=== PATIENT | female | born 1955 | race African-American/Black ===

== ENCOUNTER 2018-07-14 17:41 | Inpatient (IN) | payer MEDICAID, MEDICARE ==
--- NOTE | 2018-07-14 18:27 | ER Document Report ---
ED Medical Screen (RME) - General Chief Complaint: Breathing Difficulty Stated Complaint: CONGESTION Time Seen by Provider: 07/14/18 18:17 TRAVEL OUTSIDE OF THE [place] IN LAST 30 DAYS: No - HPI Patient complains to provider of: Cough, congestion, nausea, vomiting Notes: 07/14/18 18:26 Patient noted to have extremely low blood pressure and was taken back to a room immediately did offer to Dr. Bermudez for further care and evaluation 07/14/18 18:26 RAPID MEDICAL EVALUATION DISCLOSURE I have seen this patient as part of a Rapid Medical Evaluation and, if applicable, placed any initially appropriate orders. The patient will be seen and fully evaluated, including a full history and physical exam, by a provider (in Main ED or Fast Track) when a room becomes available. - Related Data Allergies/Adverse Reactions: No Known Allergies Allergy (Unverified 07/14/18 17:45) Past Medical History Renal/ Medical History: Denies: Hx Peritoneal Dialysis Physical Exam - Vital signs Vitals: Temp Pulse Resp BP Pulse Ox 97.4 F 88 17 60/44 L 92 07/14/18 18:06 07/14/18 18:06 07/14/18 18:06 07/14/18 18:06 07/14/18 18:06 Course - Vital Signs Vital signs: Temp Pulse Resp BP Pulse Ox 97.4 F 90 17 77/53 L 92 07/14/18 18:06 07/14/18 18:21 07/14/18 18:06 07/14/18 18:21 07/14/18 18:06
[2018-07-14] MEDS ORDERED: RINGERS SOLUTION,LACTATED 1,000 ML IV ONE ×2 (18:31→20:01)
[2018-07-14] MEDS ORDERED: LEVOFLOXACIN 750 MG/D5W RTU 750 MG/150 ML RTUPB IV ONE (18:32)
--- NOTE | 2018-07-14 18:34 | ER Document Report ---
ED General - General Chief Complaint: Breathing Difficulty Stated Complaint: CONGESTION Time Seen by Provider: 07/14/18 18:17 Notes: Patient is a 62-year-old female with a past medical history of essential hypertension, hypercholesterolemia, presents with concerns of 2 days of cough with sputum production as well as feeling quite fatigued. The patient notes that she is also had associated nausea and vomiting and has had difficulty tolerating oral intake over that time. Symptoms started gradually, been worsening since onset. Nothing seems to improve or worsen her symptoms. States that she was seen for a cough approximately 10 days ago, started on levofloxacin but discontinued the medication due to side effects. She denies any known history of chronic kidney disease. Continues to urinate regularly. Continues to have normal bowel movements. She does note that she also feels short of breath particular when she coughs for prolonged periods of time. No chest pain or fever. Has not yet seen her primary care doctor regarding today's new concerns. TRAVEL OUTSIDE OF THE [place] IN LAST 30 DAYS: No - Related Data Allergies/Adverse Reactions: No Known Allergies Allergy (Unverified 07/14/18 17:45) Past Medical History - General Information source: Patient - Social History Smoking Status: Never Smoker Frequency of alcohol use: None Drug Abuse: None Lives with: Family Family History: Reviewed & Not Pertinent Patient has suicidal ideation: No Patient has homicidal ideation: No Renal/ Medical History: Denies: Hx Peritoneal Dialysis Review of Systems - Review of Systems Notes: Constitutional: Negative for fever. Positive for generalized fatigue HENT: Negative for sore throat. Eyes: Negative for visual changes. Cardiovascular: Negative for chest pain. Respiratory: Positive for cough and shortness of breath Gastrointestinal: Negative for abdominal pain, positive for vomiting Genitourinary: Negative for dysuria. Musculoskeletal: Negative for back pain. Skin: Negative for rash. Neurological: Negative for headaches, weakness or numbness. 10 point ROS negative except as marked above and in HPI. Physical Exam - Vital signs Vitals: Temp Pulse Resp BP Pulse Ox 97.4 F 88 17 60/44 L 92 07/14/18 18:06 07/14/18 18:06 07/14/18 18:06 07/14/18 18:06 07/14/18 18:06 Interpretation: Hypotensive Notes: PHYSICAL EXAMINATION: GENERAL: Somewhat ill in appearance but in no acute distress HEAD: Atraumatic, normocephalic. EYES: Pupils equal round and reactive to light, extraocular movements intact, sclera anicteric, conjunctiva are normal. ENT: nares patent, oropharynx clear without exudates. Dry mucous membranes. NECK: Normal range of motion, supple without lymphadenopathy LUNGS: Rhonchorous breath sounds at the bases bilaterally. No respiratory distress. HEART: Regular rate and rhythm without murmurs ABDOMEN: Soft, nontender, normoactive bowel sounds. No guarding, no rebound. No masses appreciated. EXTREMITIES: Normal range of motion, no pitting or edema. No cyanosis. NEUROLOGICAL: No focal neurological deficits. Moves all extremities spon taneously and on command. PSYCH: Normal mood, normal affect. SKIN: Mildly cool skin. No acute lesions. Course - Re-evaluation Re-evalutation: 07/14/18 18:33 Documentation is delayed as I been at this patient's bedside since arrival to the department. In summary this patient does arrive profoundly hypotensive 60/33 on initial blood pressure reading. The patient was immediately brought to a trauma bay. On assessment the patient actually does not appear as poor as her blood pressure. She is slightly lethargic although does answer all questions appropriately. She complains only of vomiting as well as cough with sputum pr oduction. She also notes that she feels mildly short of breath. Symptoms have been ongoing for 3 days in total. Lung exam reveals scattered rhonchi at the bases. The patient has dry oral mucosa. Capillary refill moderately delayed. We will immediately establish to points of IV access. A 1 L lactated Ringer bolus has been initiated. Vitals are otherwise within acceptable limits with the exception of mild hypoxemia with an oxygen saturation of 92%. Patient does not have any history of obstructive or restrictive lung disease and I suspect that this is likely secondary to a respiratory infectious etiology given her hypotension, cough and sputum production and hypoxemia. IV levofloxacin has been initiated. Will obtain broad laboratories including lactate, cultures, venous blood gas. Chest x-ray is pending. Will continue to reassess this patient at regular intervals for monitoring of her blood pressure. 07/14/18 20:21 Patient's blood pressure is moderately improved. Second liter of IV fluid has been initiated. Radial capacity consistent with a likely pneumonia particular given clinical history. Awaiting laboratories. Will work on obtaining a second point of access. Will continue to reassess at regular intervals. I have reassessed patient on 2 occasions as well as augmentation. Patient and her son at the bedside been updated on care plan. 07/14/18 21:30 Patient's laboratories do reveal acute renal failure. I have discussed with Dr. Fitch who has accepted the patient. I have also discussed with Dr. Vinson who confirmed that this patient is appropriate to remain at this hospital. He has requested a renal ultrasound. Patient's blood pressure has remained map currently 75. - Vital Signs Vital signs: Temp Pulse Resp BP Pulse Ox 98.0 F 90 18 92/79 L 92 07/15/18 01:13 07/14/18 18:21 07/15/18 01:13 07/15/18 01:13 07/15/18 01:13 - Laboratory Result Diagrams: 07/14/18 20:00 07/14/18 20:00 Laboratory results interpreted by me: 07/14/18 07/14/18 07/14/18 20:00 20:00 20:00 RDW 14.5 H Monocytes % 15.3 H VBG pH VBG HCO3 Carbon Dioxide 14 L Anion Gap 23 H BUN 72 H Creatinine 6.52 H Est GFR ( Amer) 8 L Est GFR (Non-Af Amer) 6 L Glucose 116 H Lactic Acid 2.5 H Calcium 10.6 H Direct Bilirubin 0.8 H Total Protein 8.4 H 07/14/18 20:00 RDW Monocytes % VBG pH 7.25 L VBG HCO3 18.4 L Carbon Dioxide Anion Gap BUN Creatinine Est GFR ( Amer) Est GFR (Non-Af Amer) Glucose Lactic Acid Calcium Direct Bilirubin Total Protein - Diagnostic Test Radiology reviewed: Image reviewed, Reports reviewed Radiology results interpreted by me: 07/15/18 03:11 Chest x-ray: Retrocardiac opacity consistent with an acute pneumonia. Critical Care Note - Critical Care Note Total time excluding time spent on procedures (mins): 40 Comments: Critical care time spent obtaining history from patient or surrogate, discussions with consultants, development of treatment plan with patient or surrogate, evaluation of patient's response to treatment, examination of patient, ordering and performing treatments and interventions, ordering and review of laboratory studies, re-evaluation of patient's condition, ordering and review of radiographic studies and review of old charts Discharge - Discharge Clinical Impression: Acute renal failure Qualifiers: Acute renal failure type: unspecified Qualified Code(s): N17.9 - Acute kidney failure, unspecified Pneumonia Qualifiers: Pneumonia type: due to unspecified organism Laterality: unspecified laterality Lung location: unspecified part of lung Qualified Code(s): J18.9 - Pneumonia, unspecified organism Hypotension Qualifiers: Hypotension type: unspecified hypotension type Qualified Code(s): I95.9 - Hypotension, unspecified Condition: Fair Disposition: ADMITTED INPATIENT Admitting Provider: Hospitalist Unit Admitted: [facility]
--- NOTE | 2018-07-14 18:56 | RADIOLOGY REPORT (SQ) ---
EXAM DESCRIPTION: CHEST SINGLE VIEW COMPLETED DATE/TIME: 07/14/2018 6:50 pm REASON FOR STUDY: cough, hypotension COMPARISON: None EXAM PARAMETERS: NUMBER OF VIEWS: One view. TECHNIQUE: Single frontal radiographic view of the chest acquired. RADIATION DOSE: NA LIMITATIONS: Portable technique and patient body habitus FINDINGS: LUNGS AND PLEURA: Suggestion of retrocardiac consolidation. No definite pleural effusion. No pneumothorax. MEDIASTINUM AND HILAR STRUCTURES: No masses. Contour normal. HEART AND VASCULAR STRUCTURES: Borderline cardiomegaly BONES: No acute findings. HARDWARE: None in the chest. OTHER: No other significant finding. IMPRESSION: Suggestion of retrocardiac consolidation which may represent an acute infectious process . Recommend upright PA and lateral chest radiographs if clinically feasible to evaluate the retrocar diac air spaces. TECHNICAL DOCUMENTATION: JOB ID: [id number] Currently- All Rights Reserved Reading location - IP/workstation name: [email or web address]
[2018-07-14 20:18] LABS: VENOUS BLOOD BASE EXCESS -8.6 mmol/L; VENOUS BLOOD HCO3 18.4 mmol/L (20-32); VENOUS BLOOD PCO2 43.2 mmHg (35-63); VENOUS BLOOD PH 7.25 (7.30-7.42)
[2018-07-14 20:19] LABS: ABSOLUTE BASOPHILS # (AUTO) 0.1 10^3/uL (0.0-0.2); ABSOLUTE EOSINOPHILS # (AUTO) 0.1 10^3/uL (0.0-0.6); ABSOLUTE LYMPHOCYTES (AUTO) 1.1 10^3/uL (0.5-4.7); ABSOLUTE NEUT (AUTO) 4.5 10^3/uL (1.7-8.2); BASOPHILS % (AUTO) 0.8 % (0-2); EOSINOPHILS % (AUTO) 0.9 % (0-6); HEMATOCRIT 38.9 % (36.0-47.0); LYMPHOCYTES % (AUTO) 16.3 % (13-45); MEAN CORPUSCULAR HEMOGLOBIN 30.2 pg (27.0-33.4); MEAN CORPUSCULAR HGB CONC 33.4 g/dL (32.0-36.0); MEAN CORPUSCULAR VOLUME 90 fl (80-97); MONOCYTES % (AUTO) 15.3 % (3-13); PLATELET COUNT 212 10^3/uL (150-450); RED BLOOD COUNT 4.31 10^6/uL (3.72-5.28); RED CELL DISTRIBUTION WIDTH 14.5 % (11.5-14.0); SEGMENTED NEUTROPHILS % (AUTO) 66.7 % (42-78); TOTAL CELLS COUNTED % (AUTO) 100 %; WHITE BLOOD COUNT 6.8 10^3/uL (4.0-10.5)
[2018-07-14 20:36] LABS: ALANINE AMINOTRANSFERASE 22 U/L (9-52); ALBUMIN 4.7 g/dL (3.5-5.0); ALKALINE PHOSPHATASE 101 U/L (38-126); ASPARTATE AMINO TRANSFERASE 30 U/L (14-36); BILIRUBIN,DIRECT 0.8 mg/dL (0.0-0.4); BILIRUBIN,TOTAL 0.8 mg/dL (0.2-1.3); BLOOD UREA NITROGEN 72 mg/dL (7-20); CALCIUM 10.6 mg/dL (8.4-10.2); GLUCOSE 116 mg/dL (75-110); TOTAL PROTEIN 8.4 g/dL (6.3-8.2)
[2018-07-14 20:41] LABS: CARBON DIOXIDE 14 mmol/L (22-30); CHLORIDE 104 mmol/L (98-107); SODIUM 140.7 mmol/L (137-145)
[2018-07-14 20:42] LABS: ANION GAP 23 (5-19)
[2018-07-14] MEDS ORDERED: NORMAL SALINE 1000 ML 1,000 ML IV ONE (21:31)
[2018-07-14] MEDS ORDERED: MAG HYDROX/AL HYDROX/SIMETH SUSP 30 ML UDCUP PO PRN (21:48)
[2018-07-14] MEDS ORDERED: MAGNESIUM HYDROXIDE SUSP 30 ML UDCUP PO PRN (21:48)
[2018-07-14] MEDS ORDERED: ACETAMINOPHEN 325 MG TABLET PO PRN (21:48)
[2018-07-14] MEDS ORDERED: NICOTINE 21 MG/24 HR PATCH.TD24 TD PRN (21:48)
[2018-07-14] MEDS ORDERED: MORPHINE SULFATE 10 MG/ML INJ IV PRN (21:48)
[2018-07-14] MEDS: PANTOPRAZOLE SODIUM 40 MG VIAL IV SCH (22:02)
[2018-07-14] MEDS: HEPARIN SOD (PORCINE) 5,000 UNIT/ML 1 ML SYRINGE SUBCUT SCH (22:02)
[2018-07-14 22:09] LABS: APPEARANCE,URINE CLEAR; BILIRUBIN,URINE NEGATIVE (NEGATIVE); COLOR,URINE YELLOW; GLUCOSE, URINE NEGATIVE (NEGATIVE); KETONES,URINE NEGATIVE (NEGATIVE); LEUKOCYTE ESTERASE,URINE NEGATIVE (NEGATIVE); NITRITE,URINE NEGATIVE (NEGATIVE); PROTEIN,URINE NEGATIVE (NEGATIVE); URINE SPECIFIC GRAVITY 1.009; UROBILINOGEN,URINE NEGATIVE mg/dL (<2.0)
[2018-07-14 22:15] LABS: A TYPE INFLUENZA AG NEGATIVE (NEGATIVE); B INFLUENZA AG NEGATIVE (NEGATIVE)
[2018-07-14] MEDS: CEFTRIAXONE 1 GM/D5W RTU 1 GM/50 ML RTUPB IV SCH (22:22)
[2018-07-14] MEDS: AZITHROMYCIN 500 MG in DEXTROSE 5%-WATER 250 ML IV SCH (22:23)
[2018-07-14 22:39] LABS: FREE T3 4.17 pg/mL (2.77-5.27); FREE T4 (FREE THYROXINE) 1.87 ng/dL (0.78-2.19)
[2018-07-14] MEDS: RINGERS SOLUTION,LACTATED 1,000 ML IV PRN (23:15)
--- NOTE | 2018-07-14 23:26 | PDOC H&P ---
History of Present Illness Admission Date/PCP: 07/14/2018 CATHY WELDON DO Patient complains of: Cough History of Present Illness: FARIDA ENCARNACION is a 62 year old female who presented to the emergency room with a 7-day history of cough. She admits that she began coughing approximately 7 days ago and her cough gradually worsened over the course of the week. She contacted her primary care provider who phoned in a prescription for Levaquin 500 mg daily for 7 days which she has been taking as directed culminating today. She describes her cough as paroxysmal productive of moderate amounts of very thick tenacious green sputum and accompanied by chills with no fever. She denies other associated symptoms but admits numerous prior similar episodes with 4 prior episodes of pneumonia and many episodes of bronchitis. She admits to a decreased appetite and oral intake in general over the last 7 days on further questioning. In the emergency room she was found to have a left lower lung infiltrate and was further noted to have a creatinine of 6.5 with a BUN of 72. With these findings she was admitted to the hospital for further evaluation and treatment. Past Medical History Past Medical History: Patient is noted to be a poor historian knowing only that she has high blood pressure but admitting that she has "a whole sack full" of medications that she is taking. Cardiac Medical History: Reports: Hypertension Denies: Atrial Fibrillation, Coronary Artery Disease, DVT, Hyperlipidema, Pulmonary Embolism Pulmonary Medical History: Reports: Bronchitis, Pneumonia Denies: Asthma, Chronic Obstructive Pulmonary Disease (COPD) EENT Medical History: Denies: Cataracts, Nose - Nasal polyps Neurological Medical History: Denies: Hemorrhagic CVA, Ischemic CVA, Multiple Sclerosis, Seizures Endocrine Medical History: Denies: Diabetes Mellitus Type 1, Diabetes Mellitus Type 2, Hyperthyroidism, Hypothyroidism Renal/ Medical History: Denies: Chronic Kidney Disease, Nephrolithiasis Malignancy Medical History: Reports: None GI Medical History: Denies: Cirrhosis, Hepatitis Musculoskeltal Medical History: Denies: Fibromyalgia, Gout Skin Medical History: Denies: Eczema, Psoriasis Psychiatric Medical History: Denies: Alcohol Dependency, Depression, Substance Abuse, Tobacco Dependency Traumatic Medical History: Reports: None Hematology: Denies: Anemia, Bleeding Tendencies Infectious Medical History: Reports: None Past Surgical History Past Surgical History: Reports: Tubal Ligation Social History Information Source: Patient Lives with: Family Smoking Status: Former Smoker Frequency of Alcohol Use: None Hx Recreational Drug Use: No Drugs: None Hx Prescription Drug Abuse: No - Advance Directive Resuscitation Status: Full Code Surrogate healthcare decision maker:: her son Family History Family History: DM, Hypertension, Malignancy. denies: CAD Parental Family History Reviewed: Yes Children Family History Reviewed: No Sibling(s) Family History Reviewed.: Yes Medication/Allergy Allergies/Adverse Reactions: No Known Allergies Allergy (Unverified 07/14/18 17:45) Review of Systems Constitutional: PRESENT: as per HPI, chills. ABSENT: fever(s) Eyes: ABSENT: visual disturbances, other - Eye pain Ears: ABSENT: hearing changes, other - Ear pain Nose, Mouth, and Throat: ABSENT: mouth pain, sore throat Cardiovascular: ABSENT: chest pain, dyspnea on exertion, edema, orthropnea, palpitations Respiratory: PRESENT: as per HPI, cough, sputum. ABSENT: dyspnea, hemoptysis Gastrointestinal: ABSENT: abdominal pain, constipation, diarrhea, nausea, vomiting Genitourinary: ABSENT: dysuria, hematuria Musculoskeletal: ABSENT: back pain, joint swelling Integumentary: ABSENT: pruritus, rash Neurological: ABSENT: confusion, convulsions, focal weakness, memory loss Psychiatric: ABSENT: anxiety, depression Endocrine: ABSENT: cold intolerance, heat intolerance Hematologic/Lymphatic: ABSENT: easy bleeding, easy bruising Physical Exam Vital Signs: Temp Pulse Resp BP Pulse Ox 97.4 F 90 17 95/63 L 97 07/14/18 18:06 07/14/18 18:21 07/14/18 21:10 07/14/18 21:10 07/14/18 21:10 Intake & Output 07/12/18 07/13/18 07/14/18 23:59 23:59 23:59 Intake Total 1999 Balance 1999 Weight 75.6 kg General appearance: PRESENT: no acute distress, cooperative, obese Head exam: PRESENT: atraumatic, normocephalic Eye exam: PRESENT: conjunctiva pink. ABSENT: scleral icterus Ear exam: PRESENT: normal external ear exam. ABSENT: bleeding, drainage Mouth exam: PRESENT: dry mucosa, neck supple Neck exam: ABSENT: thyromegaly, tracheal deviation Respiratory exam: PRESENT: decreased breath sounds - Left base, rhonchi - Left base, symmetrical, unlabored Cardiovascular exam: PRESENT: RRR. ABSENT: clicks, gallop, rubs Pulses: PRESENT: normal radial pulses, normal dorsalis pedis pul Vascular exam: PRESENT: normal capillary refill. ABSENT: pallor GI/Abdominal exam: PRESENT: normal bowel sounds, soft Rectal exam: PRESENT: deferred Extremities exam: ABSENT: joint swelling, pedal edema Musculoskeletal exam: ABSENT: deformity, dislocation Neurological exam: PRESENT: alert, oriented to person, oriented to place, oriented to time, oriented to situation, CN II-XII grossly intact. ABSENT: motor sensory deficit Psychiatric exam: PRESENT: appropriate affect, normal mood Skin exam: PRESENT: dry, intact, warm. ABSENT: jaundice, rash, urticaria Results Laboratory Results: 07/14/18 20:00 07/14/18 20:00 07/14/18 07/14/18 07/14/18 20:00 20:00 20:00 WBC 6.8 RBC 4.31 Hgb 13.0 Hct 38.9 MCV 90 MCH 30.2 MCHC 33.4 RDW 14.5 H Plt Count 212 Seg Neutrophils % 66.7 Lymphocytes % 16.3 Monocytes % 15.3 H Eosinophils % 0.9 Basophils % 0.8 Absolute Neutrophils 4.5 Absolute Lymphocytes 1.1 Absolute Monocytes 1.0 Absolute Eosinophils 0.1 Absolute Basophils 0.1 VBG pH VBG pCO2 VBG HCO3 VBG Base Excess Sodium 140.7 Potassium 4.0 Chloride 104 Carbon Dioxide 14 L Anion Gap 23 H BUN 72 H Creatinine 6.52 H Est GFR ( Amer) 8 L Est GFR (Non-Af Amer) 6 L Glucose 116 H Lactic Acid 2.5 H Calcium 10.6 H Total Bilirubin 0.8 AST 30 ALT 22 Alkaline Phosphatase 101 Total Protein 8.4 H Albumin 4.7 07/14/18 20:00 WBC RBC Hgb Hct MCV MCH MCHC RDW Plt Count Seg Neutrophils % Lymphocytes % Monocytes % Eosinophils % Basophils % Absolute Neutrophils Absolute Lymphocytes Absolute Monocytes Absolute Eosinophils Absolute Basophils VBG pH 7.25 L VBG pCO2 43.2 VBG HCO3 18.4 L VBG Base Excess -8.6 Sodium Potassium Chloride Carbon Dioxide Anion Gap BUN Creatinine Est GFR ( Amer) Est GFR (Non-Af Amer) Glucose Lactic Acid Calcium Total Bilirubin AST ALT Alkaline Phosphatase Total Protein Albumin 07/14/18 20:00 Troponin I < 0.012 Impressions: Chest X-Ray 07/14/18 18:31 IMPRESSION: Suggestion of retrocardiac consolidation which may represent an acute infectious process. Recommend upright PA and lateral chest radiographs if clinically feasible to evaluate the retrocardiac air spaces. Assessment & Plan - Diagnosis (1) Acute renal failure Qualifiers: Acute renal failure type: unspecified Qualified Code(s): N17.9 - Acute kidney failure, unspecified Is this a current diagnosis for this admission?: Yes Plan: Patient be admitted with IV fluid rehydration/resuscitation utilizing lactated Ringer's at 250 mL/h initially. Her metabolic status will be monitored closely with serial basic metabolic profiles. Her CBC will be monitored on a daily basis. Alternative causes of acute renal failure will be assessed as mejia vlalejo. Consultation with Dr. Keenan Vinson is obtained. (2) Hypotension Qualifiers: Hypotension type: unspecified hypotension type Qualified Code(s): I95.9 - Hypotension, unspecified Is this a current diagnosis for this admission?: Yes Plan: Patient's hypertension will be treated with IV fluid replacement/resuscitation. Her blood pressure be monitored closely on IMCU and further intervention will be provided as appropriate. (3) HTN (hypertension) Qualifiers: Hypertension type: essential hypertension Qualified Code(s): I10 - Essential (primary) hypertension Is this a current diagnosis for this admission?: Yes Plan: Patient has a history of hypertension and review of her home medications will be performed when that list is available. At the present time patient does not require an antihypertensive however at some point in time she will probably need to be returned to an antihypertensive therapy which will be determined by her renal status at that time. (4) Pneumonia Qualifiers: Pneumonia type: due to unspecified organism Laterality: unspecified laterality Lung location: unspecified part of lung Qualified Code(s): J18.9 - Pneumonia, unspecified organism Is this a current diagnosis for this admission?: Yes Plan: Patient has finished 7 days of Levaquin which may be adequate for treatment of her pneumonia, with the x-ray findings lagging the clinical resolution. As this cannot be accurately ascertained patient will be at least initially treated with Rocephin and Zithromax IV. Given the patient's normal white blood count with resolution of her sputum production antibiotics could probably be discontinued after 3-5 days. Patient be treated with a pulmonary toilet utilizing levalbuterol every 8 hours and Mucomyst twice daily. - Time Time Spent: 30 to 50 Minutes Critical Time spent with patient: Less than 15 minutes Medications reviewed and adjusted accordingly: No - List unavailable Anticipated discharge: Home - Inpatient Certification Based on my medical assessment, after consideration of the patient's comorbidities, presenting symptoms, or acuity I expect that the services needed warrant INPATIENT care.: Yes I certify that my determination is in accordance with my understanding of Medicare's requirements for reasonable and necessary INPATIENT services [42 CFR 412.3e].: Yes Medical Necessity: Need Close Monitoring Due to Risk of Patient Decompensation, Need For IV Fluids, Need For Continuous Telemetry Monitoring, Need for IV Antibiotics, Risk of Complication if Not Cared For in Hospital, Risk of Diagnosis Which Will Require Inpatient Eval/Care/Monitoring
[2018-07-15] MEDS: LEVALBUTEROL HCL NEB 1.25 MG/3 ML AMPUL NEB SCH ×3 (01:16→16:02)
--- NOTE | 2018-07-15 01:58 | RADIOLOGY REPORT (SQ) ---
EXAM DESCRIPTION: US RETROPERITONEUM LIMITED COMPLETED DATE/TME: 07/14/2018 21:20 CLINICAL HISTORY: 62 years, Female, new onset renal failure Comparison: None Grayscale and Doppler sonogram of the kidneys. FINDINGS: Aorta: Unremarkable IVC: Unremarkable Right kidney: 9.2 x 6.3 x 4.4 cm. No hydronephrosis. No nephrolithiasis. 1.5 cm cyst in the superior pole. Diffuse increased echogenicity seen. Left kidney: 10.3 x 6 x 5.4 cm. Somewhat limited views due to intervening bowel gas. No hydronephrosis. No nephrolithiasis. 2.2 cm cyst in the lower pole. Diffuse increased echogenicity. Urinary bladder: Decompressed due to a Boyd catheter. IMPRESSION: Diffuse increased echogenicity of the kidneys suggestive of medical renal disease. No hydronephrosis.
[2018-07-15] MEDS: RINGERS SOLUTION,LACTATED 1,000 ML IV PRN (03:38)
[2018-07-15 04:21] LABS: ABSOLUTE EOSINOPHILS # (AUTO) 0.2 10^3/uL (0.0-0.6); ABSOLUTE LYMPHOCYTES (AUTO) 2.4 10^3/uL (0.5-4.7); ABSOLUTE NEUT (AUTO) 3.2 10^3/uL (1.7-8.2); BASOPHILS % (AUTO) 0.6 % (0-2); EOSINOPHILS % (AUTO) 2.9 % (0-6); HEMATOCRIT 34.7 % (36.0-47.0); HEMOGLOBIN 11.8 g/dL (12.0-15.5); MEAN CORPUSCULAR HEMOGLOBIN 30.6 pg (27.0-33.4); MEAN CORPUSCULAR VOLUME 90 fl (80-97); MONOCYTES % (AUTO) 14.5 % (3-13); PLATELET COUNT 189 10^3/uL (150-450); RED BLOOD COUNT 3.86 10^6/uL (3.72-5.28); RED CELL DISTRIBUTION WIDTH 14.6 % (11.5-14.0); TOTAL CELLS COUNTED % (AUTO) 100 %; WHITE BLOOD COUNT 6.9 10^3/uL (4.0-10.5)
[2018-07-15 04:26] LABS: VENOUS BLOOD BASE EXCESS -3.5 mmol/L; VENOUS BLOOD HCO3 22.4 mmol/L (20-32); VENOUS BLOOD PCO2 43.3 mmHg (35-63); VENOUS BLOOD PH 7.33 (7.30-7.42)
[2018-07-15 04:48] LABS: ANION GAP 14 (5-19); BLOOD UREA NITROGEN 55 mg/dL (7-20); CALCIUM 9.8 mg/dL (8.4-10.2); CARBON DIOXIDE 19 mmol/L (22-30); CHLORIDE 107 mmol/L (98-107); CHOLESTEROL 150.08 mg/dL (0-200); GLUCOSE 88 mg/dL (75-110); POTASSIUM 3.7 mmol/L (3.6-5.0); SODIUM 140.1 mmol/L (137-145); TRIGLYCERIDES 66 mg/dL (<150)
[2018-07-15 04:59] LABS: DIRECT LDL 88 mg/dL (<100)
[2018-07-15] MEDS: HEPARIN SOD (PORCINE) 5,000 UNIT/ML 1 ML SYRINGE SUBCUT SCH ×3 (06:00→21:47)
[2018-07-15] MEDS ORDERED: ACETYLCYSTEINE 20% SOLN 800 MG/4 ML VIAL.NEB NEB SCH (08:00)
[2018-07-15] MEDS: PANTOPRAZOLE SODIUM 40 MG VIAL IV SCH ×2 (09:37→21:46)
[2018-07-15] MEDS: DOCUSATE SODIUM 100 MG CAPSULE PO SCH ×2 (09:38→17:20)
[2018-07-15] MEDS: CEFTRIAXONE 1 GM/D5W RTU 1 GM/50 ML RTUPB IV SCH (09:38)
[2018-07-15] MEDS ORDERED: IPRATROPIUM/ALBUTEROL 0.5-2.5 MG/3 ML AMPUL NEB PRN (10:41)
[2018-07-15] MEDS ORDERED: ALBUTEROL SULFATE HFA (90 MCG/PUFF) 200 PUFF/8.5 GM MDI IH PRN (10:41)
--- NOTE | 2018-07-15 11:02 | PDOC PROGRESS REPORT ---
Subjective Progress Note for:: 07/15/18 Subjective:: 62 year old female who presented to the emergency room with a 7-day history of cough. She admits that she began coughing approximately 7 days ago and her cough gradually worsened over the course of the week. She contacted her primary care provider who phoned in a prescription for Levaquin 500 mg daily for 7 days which she has been taking as directed culminating today. She describes her cough as paroxysmal productive of moderate amounts of very thick tenacious green sputum and accompanied by chills with no fever. She denies other associated symptoms but admits numerous prior similar episodes with 4 prior episodes of pneumonia and many episodes of bronchitis. She admits to a decreased appetite and oral intake in general over the last 7 days on further questioning. In the emergency room she was found to have a left lower lung infiltrate and was further noted to have a creatinine of 6.5 with a BUN of 72. With these findings she was admitted to the hospital for further evaluation and treatment. 07/[id number]-[id number]-old female admitted for pneumonia the patient she was treated for times for the same problem and she is not getting better so decided to came to the emergency room for further evaluation in the ER found to have a left lung infiltrate and a creatinine of 6.5 with a BUN of 72 medical consult called for admission no acute events since the admission patient is afebrile. Blood pressures are improving. Reason For Visit: PNEUMONIA WITH ACUTE RENAL FAILURE Physical Exam Vital Signs: Temp Pulse Resp BP Pulse Ox 97.1 F 94 12 107/66 91 L 07/15/18 07:54 07/15/18 08:32 07/15/18 08:32 07/15/18 07:54 07/15/18 08:32 Intake & Output 07/14/18 07/15/18 07/16/18 06:59 06:59 06:59 Intake Total 6450 Output Total 1700 2000 Balance 4750 -2000 Weight 75.6 kg General appearance: PRESENT: no acute distress Head exam: PRESENT: atraumatic Eye exam: PRESENT: PERRLA Mouth exam: PRESENT: moist, tongue midline Neck exam: ABSENT: carotid bruit, JVD, lymphadenopathy, thyromegaly Respiratory exam: PRESENT: decreased breath sounds Cardiovascular exam: PRESENT: tachycardia GI/Abdominal exam: PRESENT: normal bowel sounds, soft. ABSENT: distended, guarding, mass, organolmegaly, rebound, tenderness Extremities exam: PRESENT: full ROM. ABSENT: calf tenderness, clubbing, pedal edema Neurological exam: PRESENT: alert, awake, oriented to person, oriented to place, oriented to time, oriented to situation, CN II-XII grossly intact. ABSENT: motor sensory deficit Psychiatric exam: PRESENT: appropriate affect, normal mood. ABSENT: homicidal ideation, suicidal ideation Results Laboratory Results: 07/15/18 03:57 07/15/18 03:57 07/14/18 07/14/18 07/14/18 20:00 20:00 20:00 WBC 6.8 RBC 4.31 Hgb 13.0 Hct 38.9 MCV 90 MCH 30.2 MCHC 33.4 RDW 14.5 H Plt Count 212 Seg Neutrophils % 66.7 Lymphocytes % 16.3 Monocytes % 15.3 H Eosinophils % 0.9 Basophils % 0.8 Absolute Neutrophils 4.5 Absolute Lymphocytes 1.1 Absolute Monocytes 1.0 Absolute Eosinophils 0.1 Absolute Basophils 0.1 VBG pH VBG pCO2 VBG HCO3 VBG Base Excess Sodium 140.7 Potassium 4.0 Chloride 104 Carbon Dioxide 14 L Anion Gap 23 H BUN 72 H Creatinine 6.52 H Est GFR ( Amer) 8 L Est GFR (Non-Af Amer) 6 L Glucose 116 H Lactic Acid 2.5 H Calcium 10.6 H Magnesium Total Bilirubin 0.8 AST 30 ALT 22 Alkaline Phosphatase 101 Total Protein 8.4 H Albumin 4.7 Triglycerides Cholesterol LDL Cholesterol Direct VLDL Cholesterol HDL Cholesterol TSH Free T4 Free T3 pg/mL Urine Color Urine Appearance Urine pH Ur Specific [place] Urine Protein Urine Glucose (UA) Urine Ketones Urine Blood Urine Nitrite Ur Leukocyte Esterase Urine WBC (Auto) Urine RBC (Auto) 07/14/18 07/14/18 07/14/18 20:00 20:00 21:41 WBC RBC Hgb Hct MCV MCH MCHC RDW Plt Count Seg Neutrophils % Lymphocytes % Monocytes % Eosinophils % Basophils % Absolute Neutrophils Absolute Lymphocytes Absolute Monocytes Absolute Eosinophils Absolute Basophils VBG pH 7.25 L VBG pCO2 43.2 VBG HCO3 18.4 L VBG Base Excess -8.6 Sodium Potassium Chloride Carbon Dioxide Anion Gap BUN Creatinine Est GFR ( Amer) Est GFR (Non-Af Amer) Glucose Lactic Acid Calcium Magnesium Total Bilirubin AST ALT Alkaline Phosphatase Total Protein Albumin Triglycerides Cholesterol LDL Cholesterol Direct VLDL Cholesterol HDL Cholesterol TSH Free T4 1.87 Free T3 pg/mL 4.17 Urine Color YELLOW Urine Appearance CLEAR Urine pH 5.0 Ur Specific [place] 1.009 Urine Protein NEGATIVE Urine Glucose (UA) NEGATIVE Urine Ketones NEGATIVE Urine Blood MODERATE H Urine Nitrite NEGATIVE Ur Leukocyte Esterase NEGATIVE Urine WBC (Auto) 1 Urine RBC (Auto) 0 07/14/18 07/15/18 07/15/18 23:53 03:57 03:57 WBC 6.9 RBC 3.86 Hgb 11.8 L Hct 34.7 L MCV 90 MCH 30.6 MCHC 34.0 RDW 14.6 H Plt Count 189 Seg Neutrophils % 47.0 Lymphocytes % 35.0 Monocytes % 14.5 H Eosinophils % 2.9 Basophils % 0.6 Absolute Neutrophils 3.2 Absolute Lymphocytes 2.4 Absolute Monocytes 1.0 Absolute Eosinophils 0.2 Absolute Basophils 0.0 VBG pH VBG pCO2 VBG HCO3 VBG Base Excess Sodium Potassium Chloride Carbon Dioxide Anion Gap BUN Creatinine Est GFR ( Amer) Est GFR (Non-Af Amer) Glucose Lactic Acid 1.4 1.8 Calcium Magnesium Total Bilirubin AST ALT Alkaline Phosphatase Total Protein Albumin Triglycerides Cholesterol LDL Cholesterol Direct VLDL Cholesterol HDL Cholesterol TSH Free T4 Free T3 pg/mL Urine Color Urine Appearance Urine pH Ur Specific [place] Urine Protein Urine Glucose (UA) Urine Ketones Urine Blood Urine Nitrite Ur Leukocyte Esterase Urine WBC (Auto) Urine RBC (Auto) 07/15/18 07/15/18 07/15/18 03:57 03:57 03:57 WBC RBC Hgb Hct MCV MCH MCHC RDW Plt Count Seg Neutrophils % Lymphocytes % Monocytes % Eosinophils % Basophils % Absolute Neutrophils Absolute Lymphocytes Absolute Monocytes Absolute Eosinophils Absolute Basophils VBG pH 7.33 VBG pCO2 43.3 VBG HCO3 22.4 VBG Base Excess -3.5 Sodium 140.1 Potassium 3.7 Chloride 107 Carbon Dioxide 19 L Anion Gap 14 BUN 55 H Creatinine 4.05 H Est GFR ( Amer) 13 L Est GFR (Non-Af Amer) 11 L Glucose 88 Lactic Acid Calcium 9.8 Magnesium 2.1 Total Bilirubin AST ALT Alkaline Phosphatase Total Protein Albumin Triglycerides 66 Cholesterol 150.08 LDL Cholesterol Direct 88 VLDL Cholesterol 13.0 HDL Cholesterol 40 TSH 0.36 L Free T4 Free T3 pg/mL Urine Color Urine Appearance Urine pH Ur Specific [place] Urine Protein Urine Glucose (UA) Urine Ketones Urine Blood Urine Nitrite Ur Leukocyte Esterase Urine WBC (Auto) Urine RBC (Auto) 07/15/18 08:28 WBC RBC Hgb Hct MCV MCH MCHC RDW Plt Count Seg Neutrophils % Lymphocytes % Monocytes % Eosinophils % Basophils % Absolute Neutrophils Absolute Lymphocytes Absolute Monocytes Absolute Eosinophils Absolute Basophils VBG pH VBG pCO2 VBG HCO3 VBG Base Excess Sodium Potassium Chloride Carbon Dioxide Anion Gap BUN Creatinine Est GFR ( Amer) Est GFR (Non-Af Amer) Glucose Lactic Acid 1.6 Calcium Magnesium Total Bilirubin AST ALT Alkaline Phosphatase Total Protein Albumin Triglycerides Cholesterol LDL Cholesterol Direct VLDL Cholesterol HDL Cholesterol TSH Free T4 Free T3 pg/mL Urine Color Urine Appearance Urine pH Ur Specific [place] Urine Protein Urine Glucose (UA) Urine Ketones Urine Blood Urine Nitrite Ur Leukocyte Esterase Urine WBC (Auto) Urine RBC (Auto) 07/14/18 07/15/18 20:00 03:57 Troponin I < 0.012 NT-Pro-B Natriuret Pep 161 Impressions: Chest X-Ray 07/14/18 18:31 IMPRESSION: Suggestion of retrocardiac consolidation which may represent an acute infectious process. Recommend upright PA and lateral chest radiographs if clinically feasible to evaluate the retrocardiac air spaces. Renal Ultrasound 07/14/18 21:20 IMPRESSION: Diffuse increased echogenicity of the kidneys suggestive of medical renal disease. No hydronephrosis. Assessment and Plan - Diagnosis (1) Acute renal failure Qualifiers: Acute renal failure type: unspecified Qualified Code(s): N17.9 - Acute kidney failure, unspecified Is this a current diagnosis for this admission?: Yes Plan: Patient be admitted with IV fluid rehydration/resuscitation utilizing lactated Ringer's at 250 mL/h initially. Her metabolic status will be monitored closely with serial basic metabolic profiles. Her CBC will be monitored on a daily basis. Alternative causes of acute renal failure will be assessed as appropriate. Consultation with Dr. Keenan Vinson is obtained. 07/15/2018 patient was admitted with creatinine of 6.5 and she is on Ringer lactate to 50 cc/h creatinine is improved to 4.05. We do not have the baseline creatinine available. Most likely she has acute on chronic renal failure secondary to poor oral intake resolving. And is to recheck the labs tomorrow and plan is to change IV fluids to normal saline at 125 cc/h. Plan is to recheck the labs tomorrow. (2) Hypotension Qualifiers: Hypotension type: unspecified hypotension type Qualified Code(s): I95.9 - Hypotension, unspecified Is this a current diagnosis for this admission?: Yes Plan: 07/15/18 11:00 Patient latest blood pressure is 107/66 on admission it was 94/73. Patient is on Ringer lactate to 50 cc/h I change the fluids to normal saline at 126 cc/h. Renal ultrasound was requested. Plan is to continue the present management antihypertensives are on hold. (3) Pneumonia Qualifiers: Pneumonia type: due to unspecified organism Laterality: unspecified laterality Lung location: unspecified part of lung Qualified Code(s): J18.9 - Pneumonia, unspecified organism Is this a current diagnosis for this admission?: Yes Plan: Patient has finished 7 days of Levaquin which may be adequate for treatment of her pneumonia, with the x-ray findings lagging the clinical resolution. As this cannot be accurately ascertained patient will be at least initially treated with Rocephin and Zithromax IV. Given the patient's normal white blood count with resolution of her sputum production antibiotics could probably be discontinued after 3-5 days. Patient be treated with a pulmonary toilet utilizing levalbu terol every 8 hours and Mucomyst twice daily. 07/15/2018-patient was treated with pneumonia 4 times as an outpatient without success chest x-ray findings in the ER shows left lower lobe infiltrate started on IV Rocephin and Zithromax. We are going to do the CT chest without contrast today for further information. Patient has most likely community-acquired pneumonia the sputum culture shows gram-positive cocci most likely gram-positive bacteria is responsible organism plan is to continue the present management follow her on regular basis blood cultures are negative so far. - Time Time Spent with patient: 15-24 minutes Medications reviewed and adjusted accordingly: Yes Anticipated discharge: Home
[2018-07-15] MEDS: AZITHROMYCIN 500 MG in DEXTROSE 5%-WATER 250 ML IV SCH (11:12)
[2018-07-15] MEDS: NORMAL SALINE 1000 ML 1,000 ML IV PRN ×2 (12:29→22:23)
--- NOTE | 2018-07-15 13:23 | PDOC CONSULTATION ---
Consultation Consult Date: 07/15/18 Consult reason:: SHUN Andrea. History of Present Illness Admission Date/PCP: 07/14/18 21:35 CATHY WELDON DO History of Present Illness: FARIDA ENCARNACION is a 62 year old female with a history of hypertension, hyperlipidemia was admitted with history of persistent cough with expectoration for the last 3-4 weeks. Evaluations in the ER revealed that she had Pneumonia and associated TANISHA with a creatinine of 6+. Patient is not known to have pre- existing kidney disease to the best of her knowledge. Patient gives a history of persistent cough with green expectoration for the last 3-4 weeks. Has been on multiple antibiotics but has not really gotten much better. No complaints of any fever chills or rigors or generalized myalgia. No history of any hematuria abdominal pains. No history of any skin rash polyarthralgia. Radiological evaluations confirm she has pneumonia. She has been admitted for further evaluations and management. Currently on IV fluids and IV antibiotics. Labs on review today shows improving creatinine now. Past Medical History Cardiac Medical History: Reports: Hypertension-primary Denies: Atrial Fibrillation, Coronary Artery Disease, DVT, Hyperlipidemia, Pulmonary Embolism Pulmonary Medical History: Reports: Bronchitis, Pneumonia Denies: Asthma, Chronic Obstructive Pulmonary Disease (COPD) EENT Medical History: Denies: Cataracts, Nose - Nasal polyps Neurological Medical History: Denies: Hemorrhagic CVA, Ischemic CVA, Multiple Sclerosis, Seizures Endocrine Medical History: Denies: Diabetes Mellitus Type 1, Diabetes Mellitus Type 2, Hyperthyroidism, Hypothyroidism Complications of Diabetes: Reports: None Renal/ Medical History: Denies: Nephrolithiasis Malignancy Medical History: Reports: None GI Medical History: Denies: Cirrhosis, Hepatitis Musculoskeltal Medical History: Denies: Fibromyalgia, Gout Skin Medical History: Denies: Eczema, Psoriasis Psychiatric Medical History: Denies: Alcohol Dependency, Depression, Substance Abuse, Tobacco Dependency Traumatic Medical History: Reports: None Infectious Medical History: Reports: None Past Surgical History Past Surgical History: Reports: Tubal Ligation Social History Lives with: Family Smoking Status: Former Smoker Number of Years Smokin Frequency of Alcohol Use: None Hx Recreational Drug Use: No Drugs: None Hx Prescription Drug Abuse: No - Advance Directive Resuscitation Status: Full Code Family History Parental Family History Reviewed: Yes - Negative for ESRD Children Family History Reviewed: No Sibling(s) Family History Reviewed.: No Medication/Allergy Home Medications: Acetylcysteine [V-Xvqsyu-i-Cysteine] 600 mg PO DAILY 07/15/18 Albuterol Sulfate [Proair Hfa Inhalation Aerosol 8.5 gm Mdi] 2 puff IH Q6HP PRN 07/15/18 Amlodipine Besylate [Norvasc 5 mg Tablet] 5 mg PO DAILY 07/15/18 Atorvastatin Calcium [Lipitor 40 mg Tablet] 40 mg PO QHS 07/15/18 Cetirizine HCl [Zyrtec 10 mg Tablet] 10 mg PO DAILY 07/15/18 Ergocalciferol (Vitamin D2) [Drisdol 50,000 Unit (1.25MG) Capsule] 50,000 unit PO MO@1000 07/15/18 Fluticasone Propionate [Flonase Nasal [place] 50 Mcg/[place] 16 gm] 1 spray NAREB DAILY 07/15/18 Gabapentin [Neurontin 300 mg Capsule] 300 mg PO DAILY 07/15/18 Gemfibrozil [Lopid 600 mg Tablet] 600 mg PO BIDACBS 07/15/18 Ipratropium/Albuterol Sulfate [Duoneb 3 ml Ampul] 3 ml NEB [id number] PRN 07/15/18 Levofloxacin [Levaquin 750 mg Tablet] 750 mg PO DAILY MDD filled 07/07/18 for 10daysupply 07/15/18 Losartan/Hydrochlorothiazide [Losartan-Hctz 50-12.5 mg Tab] 1 each PO DAILY 07/15/18 Naproxen [Naprosyn] 500 mg PO Q12HP PRN 07/15/18 Sulfamethoxazole/Trimethoprim [Septra-Ds 800-160 mg Tablet] 1 tab PO .Q12 STOPPED MDD filled 07/08/18 for 10daysupply 07/15/18 Tiotropium Br/Olodaterol HCl [Stiolto Respimat Inhal [place]] 2 puff IH DAILY 07/15/18 Allergies/Adverse Reactions: No Known Allergies Allergy (Unverified 07/14/18 17:45) Review of Systems Constitutional: PRESENT: fatigue. ABSENT: chills, fever(s), headache(s), night sweats Ears: ABSENT: hearing changes Nose, Mouth, and Throat: ABSENT: mouth pain, sore throat Cardiovascular: PRESENT: dyspnea on exertion. ABSENT: chest pain, edema, orthropnea, palpitations Gastrointestinal: ABSENT: abdominal pain, bloating, diarrhea, dysphagia, heartburn, hematemesis, melena, nausea, vomiting Genitourinary: ABSENT: difficulty urinating, dysuria, hematuria Musculoskeletal: ABSENT: back pain, deformity, joint swelling Integumentary: ABSENT: diaphoresis, erythema Neurological: ABSENT: abnormal movements, abnormal speech, confusion, focal we akness, frequent falls Endocrine: ABSENT: cold intolerance, polydipsia Hematologic/Lymphatic: ABSENT: easy bleeding, easy bruising, lymphadenopathy Physical Exam Vital Signs: Temp Pulse Resp BP Pulse Ox 97.1 F 94 12 107/66 91 L 07/15/18 07:54 07/15/18 08:32 07/15/18 08:32 07/15/18 07:54 07/15/18 08:32 Intake & Output 07/14/18 07/15/18 07/16/18 06:59 06:59 06:59 Intake Total 6450 1300 Output Total 1700 2000 Balance 4750 -700 Weight 75.6 kg General appearance: PRESENT: no acute distress Eye exam: PRESENT: conjunctiva pink, EOMI, PERRLA Mouth exam: PRESENT: moist, neck supple Neck exam: ABSENT: lymphadenopathy, meningismus, tenderness, thyromegaly, tracheal deviation Respiratory exam: PRESENT: clear to auscultation melvina, decreased breath sounds. ABSENT: crackles Cardiovascular exam: PRESENT: +S1, +S2 GI/Abdominal exam: PRESENT: normal bowel sounds, soft. ABSENT: organomegaly, tenderness Extremities exam: ABSENT: pedal edema Neurological exam: PRESENT: alert, awake, oriented to person, oriented to place Psychiatric exam: PRESENT: appropriate affect Skin exam: ABSENT: erythema, mottled, rash Results Laboratory Results: 07/15/18 03:57 07/15/18 03:57 07/14/18 07/14/18 07/14/18 20:00 20:00 20:00 WBC 6.8 RBC 4.31 Hgb 13.0 Hct 38.9 MCV 90 MCH 30.2 MCHC 33.4 RDW 14.5 H Plt Count 212 Seg Neutrophils % 66.7 Lymphocytes % 16.3 Monocytes % 15.3 H Eosinophils % 0.9 Basophils % 0.8 Absolute Neutrophils 4.5 Absolute Lymphocytes 1.1 Absolute Monocytes 1.0 Absolute Eosinophils 0.1 Absolute Basophils 0.1 VBG pH VBG pCO2 VBG HCO3 VBG Base Excess Sodium 140.7 Potassium 4.0 Chloride 104 Carbon Dioxide 14 L Anion Gap 23 H BUN 72 H Creatinine 6.52 H Est GFR ( Amer) 8 L Est GFR (Non-Af Amer) 6 L Glucose 116 H Lactic Acid 2.5 H Calcium 10.6 H Magnesium Total Bilirubin 0.8 AST 30 ALT 22 Alkaline Phosphatase 101 Total Protein 8.4 H Albumin 4.7 Triglycerides Cholesterol LDL Cholesterol Direct VLDL Cholesterol HDL Cholesterol TSH Free T4 Free T3 pg/mL Urine Color Urine Appearance Urine pH Ur Specific [place] Urine Protein Urine Glucose (UA) Urine Ketones Urine Blood Urine Nitrite Ur Leukocyte Esterase Urine WBC (Auto) Urine RBC (Auto) 07/14/18 07/14/18 07/14/18 20:00 20:00 21:41 WBC RBC Hgb Hct MCV MCH MCHC RDW Plt Count Seg Neutrophils % Lymphocytes % Monocytes % Eosinophils % Basophils % Absolute Neutrophils Absolute Lymphocytes Absolute Monocytes Absolute Eosinophils Absolute Basophils VBG pH 7.25 L VBG pCO2 43.2 VBG HCO3 18.4 L VBG Base Excess -8.6 Sodium Potassium Chloride Carbon Dioxide Anion Gap BUN Creatinine Est GFR ( Amer) Est GFR (Non-Af Amer) Glucose Lactic Acid Calcium Magnesium Total Bilirubin AST ALT Alkaline Phosphatase Total Protein Albumin Triglycerides Cholesterol LDL Cholesterol Direct VLDL Cholesterol HDL Cholesterol TSH Free T4 1.87 Free T3 pg/mL 4.17 Urine Color YELLOW Urine Appearance CLEAR Urine pH 5.0 Ur Specific [place] 1.009 Urine Protein NEGATIVE Urine Glucose (UA) NEGATIVE Urine Ketones NEGATIVE Urine Blood MODERATE H Urine Nitrite NEGATIVE Ur Leukocyte Esterase NEGATIVE Urine WBC (Auto) 1 Urine RBC (Auto) 0 07/14/18 07/15/18 07/15/18 23:53 03:57 03:57 WBC 6.9 RBC 3.86 Hgb 11.8 L Hct 34.7 L MCV 90 MCH 30.6 MCHC 34.0 RDW 14.6 H Plt Count 189 Seg Neutrophils % 47.0 Lymphocytes % 35.0 Monocytes % 14.5 H Eosinophils % 2.9 Basophils % 0.6 Absolute Neutrophils 3.2 Absolute Lymphocytes 2.4 Absolute Monocytes 1.0 Absolute Eosinophils 0.2 Absolute Basophils 0.0 VBG pH VBG pCO2 VBG HCO3 VBG Base Excess Sodium Potassium Chloride Carbon Dioxide Anion Gap BUN Creatinine Est GFR ( Amer) Est GFR (Non-Af Amer) Glucose Lactic Acid 1.4 1.8 Calcium Magnesium Total Bilirubin AST ALT Alkaline Phosphatase Total Protein Albumin Triglycerides Cholesterol LDL Cholesterol Direct VLDL Cholesterol HDL Cholesterol TSH Free T4 Free T3 pg/mL Urine Color Urine Appearance Urine pH Ur Specific [place] Urine Protein Urine Glucose (UA) Urine Ketones Urine Blood Urine Nitrite Ur Leukocyte Esterase Urine WBC (Auto) Urine RBC (Auto) 07/15/18 07/15/18 07/15/18 03:57 03:57 03:57 WBC RBC Hgb Hct MCV MCH MCHC RDW Plt Count Seg Neutrophils % Lymphocytes % Monocytes % Eosinophils % Basophils % Absolute Neutrophils Absolute Lymphocytes Absolute Monocytes Absolute Eosinophils Absolute Basophils VBG pH 7.33 VBG pCO2 43.3 VBG HCO3 22.4 VBG Base Excess -3.5 Sodium 140.1 Potassium 3.7 Chloride 107 Carbon Dioxide 19 L Anion Gap 14 BUN 55 H Creatinine 4.05 H Est GFR ( Amer) 13 L Est GFR (Non-Af Amer) 11 L Glucose 88 Lactic Acid Calcium 9.8 Magnesium 2.1 Total Bilirubin AST ALT Alkaline Phosphatase Total Protein Albumin Triglycerides 66 Cholesterol 150.08 LDL Cholesterol Direct 88 VLDL Cholesterol 13.0 HDL Cholesterol 40 TSH 0.36 L Free T4 Free T3 pg/mL Urine Color Urine Appearance Urine pH Ur Specific [place] Urine Protein Urine Glucose (UA) Urine Ketones Urine Blood Urine Nitrite Ur Leukocyte Esterase Urine WBC (Auto) Urine RBC (Auto) 07/15/18 08:28 WBC RBC Hgb Hct MCV MCH MCHC RDW Plt Count Seg Neutrophils % Lymphocytes % Monocytes % Eosinophils % Basophils % Absolute Neutrophils Absolute Lymphocytes Absolute Monocytes Absolute Eosinophils Absolute Basophils VBG pH VBG pCO2 VBG HCO3 VBG Base Excess Sodium Potassium Chloride Carbon Dioxide Anion Gap BUN Creatinine Est GFR ( Amer) Est GFR (Non-Af Amer) Glucose Lactic Acid 1.6 Calcium Magnesium Total Bilirubin AST ALT Alkaline Phosphatase Total Protein Albumin Triglycerides Cholesterol LDL Cholesterol Direct VLDL Cholesterol HDL Cholesterol TSH Free T4 Free T3 pg/mL Urine Color Urine Appearance Urine pH Ur Specific [place] Urine Protein Urine Glucose (UA) Urine Ketones Urine Blood Urine Nitrite Ur Leukocyte Esterase Urine WBC (Auto) Urine RBC (Auto) 07/14/18 07/15/18 20:00 03:57 Troponin I < 0.012 NT-Pro-B Natriuret Pep 161 Impressions: Chest X-Ray 07/14/18 18:31 IMPRESSION: Suggestion of retrocardiac consolidation which may represent an acute infectious process. Recommend upright PA and lateral chest radiographs if clinically feasible to evaluate the retrocardiac air spaces. Renal Ultrasound 07/14/18 21:20 IMPRESSION: Diffuse increased echogenicity of the kidneys suggestive of medical renal disease. No hydronephrosis. Assessment & Plan - Diagnosis (1) Acute renal failure Qualifiers: Acute renal failure type: unspecified Qualified Code(s): N17.9 - Acute kidney failure, unspecified Is this a current diagnosis for this admission?: Yes Plan: TANISHA secondary to ATN / Hypotension in the background of possible sepsis from pneumonia. However there was no leukocytosis. Patient showing improving creatinine on current management principles including IV antibiotics and fluids . Renal ultrasound was negative for any obstructive uropathy. Continue the same. (2) HTN (hypertension) Qualifiers: Hypertension type: essential hypertension Qualified Code(s): I10 - Es sential (primary) hypertension Is this a current diagnosis for this admission?: Yes Plan: Patient was hypotensive on presentation and therefore antihypertensives are on hold. Continue on the same. (3) Pneumonia Qualifiers: Pneumonia type: due to unspecified organism Laterality: unspecified laterality Lung location: unspecified part of lung Qualified Code(s): J18.9 - Pneumonia, unspecified organism Is this a current diagnosis for this admission?: Yes Plan: Patient feels clinically better on current antibiotics. Continue the same. (4) Hypotension Qualifiers: Hypotension type: unspecified hypotension type Qualified Code(s): I95.9 - Hypotension, unspecified Is this a current diagnosis for this admission?: Yes Plan: Currently improving. Continue gentle hydration.
--- NOTE | 2018-07-15 14:04 | RADIOLOGY REPORT (SQ) ---
EXAM DESCRIPTION: CT CHEST WITHOUT COMPLETED DATE/TIME: 07/15/2018 1:26 pm REASON FOR STUDY: pneumonia COMPARISON: None. TECHNIQUE: CT scan performed of the chest without intravenous contrast. Images reviewed with lung, soft tissue and bone windows. Reconstructed coronal and sagittal MPR images reviewed. All images st ored on PACS. All CT scanners at this facility use dose modulation, iterative reconstruction, and/or weight based d osing when appropriate to reduce radiation dose to as low as reasonably achievable (ALARA). [facility]: Dose Right [facility]: CareDose [facility]: Dose Right [facility]: Teradose 4D [facility]: Smart KnCMiner RADIATION DOSE: CT Rad equipment meets quality standard of care and radiation dose reduction techniq ues were employed. CTDIvol: 10.4 mGy. DLP: 351 mGy-cm. mGy. LIMITATIONS: No technical limitations. FINDINGS: LUNGS AND PLEURA: There is opacification in the medial left base. HILAR AND MEDIASTINAL STRUCTURES: There are multiple small mediastinal nodes. These are generally díaz bcentimeter in size. HEART AND VASCULAR STRUCTURES: No aneurysm. No pericardial effusion. UPPER ABDOMEN: No significant findings. Limited exam. THYROID AND OTHER SOFT TISSUES: No masses. No adenopathy. BONES: No significant finding. HARDWARE: None in the chest. OTHER: No other significant findings. IMPRESSION: Limited airspace disease in the medial aspect of the left lower lobe. Pneumonia versus atelectasis. Mild mediastinal adenopathy. TECHNICAL DOCUMENTATION: JOB ID: [id number] Quality ID # [id number]: Final reports with documentation of one or more dose reduction techniques (e.g., Au tomated exposure control, adjustment of the mA and/or kV according to patient size, use of iterative reconstruction technique) 2010 [employer]- All Rights Reserved Reading location - IP/workstation name: [email or web address]
[2018-07-15] MEDS: GEMFIBROZIL 600 MG TABLET PO SCH (17:20)
[2018-07-15] MEDS: ACETYLCYSTEINE 20% SOLN 800 MG/4 ML VIAL.NEB PO SCH (18:35)
[2018-07-15] MEDS: ATORVASTATIN CALCIUM 40 MG TABLET PO SCH (21:47)
[2018-07-16] MEDS: LEVALBUTEROL HCL NEB 1.25 MG/3 ML AMPUL NEB SCH ×4 (00:25→23:53)
[2018-07-16 05:16] LABS: ABSOLUTE EOSINOPHILS # (AUTO) 0.4 10^3/uL (0.0-0.6); ABSOLUTE LYMPHOCYTES (AUTO) 2.4 10^3/uL (0.5-4.7); ABSOLUTE NEUT (AUTO) 4.9 10^3/uL (1.7-8.2); BASOPHILS % (AUTO) 0.4 % (0-2); EOSINOPHILS % (AUTO) 4.1 % (0-6); HEMATOCRIT 35.7 % (36.0-47.0); HEMOGLOBIN 12.2 g/dL (12.0-15.5); LYMPHOCYTES % (AUTO) 27.3 % (13-45); MEAN CORPUSCULAR HEMOGLOBIN 30.5 pg (27.0-33.4); MEAN CORPUSCULAR HGB CONC 34.2 g/dL (32.0-36.0); MEAN CORPUSCULAR VOLUME 89 fl (80-97); MONOCYTES % (AUTO) 11.4 % (3-13); PLATELET COUNT 176 10^3/uL (150-450); RED CELL DISTRIBUTION WIDTH 14.6 % (11.5-14.0); SEGMENTED NEUTROPHILS % (AUTO) 56.8 % (42-78); TOTAL CELLS COUNTED % (AUTO) 100 %; WHITE BLOOD COUNT 8.6 10^3/uL (4.0-10.5)
[2018-07-16 05:38] LABS: ALANINE AMINOTRANSFERASE 22 U/L (9-52); ALBUMIN 3.5 g/dL (3.5-5.0); ALKALINE PHOSPHATASE 82 U/L (38-126); ANION GAP 12 (5-19); ASPARTATE AMINO TRANSFERASE 25 U/L (14-36); BILIRUBIN,DIRECT 0.4 mg/dL (0.0-0.4); BILIRUBIN,TOTAL 0.5 mg/dL (0.2-1.3); BLOOD UREA NITROGEN 32 mg/dL (7-20); CALCIUM 10.3 mg/dL (8.4-10.2); CARBON DIOXIDE 21 mmol/L (22-30); CHLORIDE 109 mmol/L (98-107); GLUCOSE 86 mg/dL (75-110); POTASSIUM 3.6 mmol/L (3.6-5.0); SODIUM 141.8 mmol/L (137-145); TOTAL PROTEIN 6.9 g/dL (6.3-8.2)
[2018-07-16] MEDS: HEPARIN SOD (PORCINE) 5,000 UNIT/ML 1 ML SYRINGE SUBCUT SCH ×3 (05:39→23:36)
[2018-07-16] MEDS: NORMAL SALINE 1000 ML 1,000 ML IV PRN ×2 (05:40→20:08)
[2018-07-16] MEDS: GEMFIBROZIL 600 MG TABLET PO SCH ×2 (08:16→17:35)
[2018-07-16] MEDS: PANTOPRAZOLE SODIUM 40 MG VIAL IV SCH ×2 (09:30→23:35)
[2018-07-16] MEDS: DOCUSATE SODIUM 100 MG CAPSULE PO SCH ×2 (09:31→17:35)
[2018-07-16] MEDS: CETIRIZINE 10 MG TABLET PO SCH (09:31)
[2018-07-16] MEDS: GABAPENTIN 300 MG CAPSULE PO SCH (09:31)
[2018-07-16] MEDS: FLUTICASONE NASAL SPRAY 50 MCG/SPRY 120 SPRAY/16 GM NAREB SCH (09:31)
[2018-07-16] MEDS: CEFTRIAXONE 1 GM/D5W RTU 1 GM/50 ML RTUPB IV SCH (09:31)
--- NOTE | 2018-07-16 09:38 | PDOC PROGRESS REPORT ---
Subjective Progress Note for:: 07/16/18 Subjective:: 62 year old female who presented to the emergency room with a 7-day history of cough. She admits that she began coughing approximately 7 days ago and her cough gradually worsened over the course of the week. She contacted her primary care provider who phoned in a prescription for Levaquin 500 mg daily for 7 days which she has been taking as directed culminating today. She describes her cough as paroxysmal productive of moderate amounts of very thick tenacious green sputum and accompanied by chills with no fever. She denies other associated symptoms but admits numerous prior similar episodes with 4 prior episodes of pneumonia and many episodes of bronchitis. She admits to a decreased appetite and oral intake in general over the last 7 days on further questioning. In the emergency room she was found to have a left lower lung infiltrate and was further noted to have a creatinine of 6.5 with a BUN of 72. With these findings she was admitted to the hospital for further evaluation and treatment. 07/[id number]-zqoe-old female admitted for pneumonia the patient she was treated for times for the same problem and she is not getting better so decided to came to the emergency room for further evaluation in the ER found to have a left lung infiltrate and a creatinine of 6.5 with a BUN of 72 medical consult called for admission no acute events since the admission patient is afebrile. Blood pressures are improving. 07/16/2018-no acute events in the last 24 hrs.afebril.comfortably audibly in bed communicating very well. Denies any problems denies any concerns. Reason For Visit: PNEUMONIA WITH ACUTE RENAL FAILURE Physical Exam Vital Signs: Temp Pulse Resp BP Pulse Ox 97.3 F 104 H 14 104/61 93 07/16/18 07:26 07/16/18 08:47 07/16/18 08:47 07/16/18 07:26 07/16/18 08:47 Intake & Output 07/15/18 07/16/18 07/17/18 06:59 06:59 06:59 Intake Total 6450 3760 Output Total 1700 4200 Balance 4750 -440 Weight 75.6 kg 79.7 kg General appearance: PRESENT: no acute distress Head exam: PRESENT: atraumatic Eye exam: PRESENT: PERRLA Neck exam: ABSENT: carotid bruit, JVD, lymphadenopathy, thyromegaly Respiratory exam: PRESENT: clear to auscultation melvina. ABSENT: rales, rhonchi, wheezes Cardiovascular exam: PRESENT: RRR. ABSENT: diastolic murmur, rubs, systolic mur mur GI/Abdominal exam: PRESENT: normal bowel sounds, soft. ABSENT: distended, guarding, mass, organolmegaly, rebound, tenderness Extremities exam: PRESENT: full ROM. ABSENT: calf tenderness, clubbing, pedal edema Neurological exam: PRESENT: alert, awake, oriented to person, oriented to place, oriented to time, oriented to situation, CN II-XII grossly intact. ABSENT: motor sensory deficit Psychiatric exam: PRESENT: appropriate affect, normal mood. ABSENT: homicidal ideation, suicidal ideation Results Laboratory Results: 07/16/18 04:58 07/16/18 04:58 07/16/18 07/16/18 04:58 04:58 WBC 8.6 RBC 4.00 Hgb 12.2 Hct 35.7 L MCV 89 MCH 30.5 MCHC 34.2 RDW 14.6 H Plt Count 176 Seg Neutrophils % 56.8 Lymphocytes % 27.3 Monocytes % 11.4 Eosinophils % 4.1 Basophils % 0.4 Absolute Neutrophils 4.9 Absolute Lymphocytes 2.4 Absolute Monocytes 1.0 Absolute Eosinophils 0.4 Absolute Basophils 0.0 Sodium 141.8 Potassium 3.6 Chloride 109 H Carbon Dioxide 21 L Anion Gap 12 BUN 32 H Creatinine 1.70 H Est GFR ( Amer) 37 L Est GFR (Non-Af Amer) 30 L Glucose 86 Calcium 10.3 H Magnesium 1.8 Total Bilirubin 0.5 AST 25 ALT 22 Alkaline Phosphatase 82 Total Protein 6.9 Albumin 3.5 07/14/18 07/15/18 20:00 03:57 Troponin I < 0.012 NT-Pro-B Natriuret Pep 161 Impressions: Chest X-Ray 07/14/18 18:31 IMPRESSION: Suggestion of retrocardiac consolidation which may represent an acute infectious process. Recommend upright PA and lateral chest radiographs if clinically feasible to evaluate the retrocardiac air spaces. Renal Ultrasound 07/14/18 21:20 IMPRESSION: Diffuse increased echogenicity of the kidneys suggestive of medical renal disease. No hydronephrosis. Chest CT 07/15/18 00:00 IMPRESSION: Limited airspace disease in the medial aspect of the left lower lobe. Pneumonia versus atelectasis. Mild mediastinal adenopathy. Assessment and Plan - Diagnosis (1) Acute renal failure Qualifiers: Acute renal failure type: unspecified Qualified Code(s): N17.9 - Acute kidney failure, unspecified Is this a current diagnosis for this admission?: Yes Plan: Patient be admitted with IV fluid rehydration/resuscitation utilizing lactated Ringer's at 250 mL/h initially. Her metabolic status will be monitored closely with serial basic metabolic profiles. Her CBC will be monitored on a daily basis. Alternative causes of acute renal failure will be assessed as appropriate. Consultation with Dr. Keenan Vinson is obtained. 07/15/2018 patient was admitted with creatinine of 6.5 and she is on Ringer lact ate to 50 cc/h creatinine is improved to 4.05. We do not have the baseline creatinine available. Most likely she has acute on chronic renal failure secondary to poor oral intake resolving. And is to recheck the labs tomorrow and plan is to change IV fluids to normal saline at 125 cc/h. Plan is to recheck the labs tomorrow. 07/16/2018-patient's admission creatinine is 6.1 improved to 1.7 today with IV fluids acute kidney injury most likely secondary to prerenal causes which is resolving. IV fluids are decreased from 125-75 cc/h from this morning. plan is to recheck the labs tomorrow. (2) Hypotension Qualifiers: Hypotension type: unspecified hypotension type Qualified Code(s): I95.9 - Hypotension, unspecified Is this a current diagnosis for this admission?: Yes Plan: 07/15/18 11:00 Patient latest blood pressure is 107/66 on admission it was 94/73. Patient is on Ringer lactate to 50 cc/h I change the fluids to normal saline at 126 cc/h. Renal ultrasound was requested. Plan is to continue the present management antihypertensives are on hold. 07/16/2018-patient's blood pressure today is 104/61 presently on normal saline at 125 cc/h blood pressure medications she is taking at home are on hold plan is to continue the present management and recheck the labs tomorrow. (3) Pneumonia Qualifiers: Pneumonia type: due to unspecified organism Laterality: unspecified laterality Lung location: unspecified part of lung Qualified Code(s): J18.9 - Pneumonia, unspecified organism Is this a current diagnosis for this admission?: Yes Plan: Patient has finished 7 days of Levaquin which may be adequate for treatment of her pneumonia, with the x-ray findings lagging the clinical resolution. As this cannot be accurately ascertained patient will be at least initially treated with Rocephin and Zithromax IV. Given the patient's normal white blood count with resolution of her sputum production antibiotics could probably be discontinued after 3-5 days. Patient be treated with a pulmonary toilet utilizing levalbuterol every 8 hours and Mucomyst twice daily. 07/15/2018-patient was treated with pneumonia 4 times as an outpatient without success chest x-ray findings in the ER shows left lower lobe infiltrate started on IV Rocephin and Zithromax. We are going to do the CT chest without contrast today for further information. Patient has most likely community-acquired pneumonia the sputum culture shows gram-positive cocci most likely gram-positive bacteria is responsible organism plan is to continue the present management follow her on regular basis blood cultures are negative so far. 07/16/2018-admission chest x-ray suggestive of pneumonia sputum culture is posi tive for gram-positive cocci in pairs presently on azithromycin and ceftriaxone patient is afebrile T-max is 97.3 hypotension is resolving patient has community-acquired pneumonia most likely secondary to gram-positive bacteria. (4) Sepsis Is this a current diagnosis for this admission?: Yes Plan: 07/16/2018 patient came in with hypotension, acute renal failure and the chest x- ray shows pneumonia all the symptoms suggestive of sepsis. Sepsis is resolving. Sputum culture is positive for gram-positive cocci in pairs. Cultures are negative. - Time Time Spent with patient: Less than 15 minutes Medications reviewed and adjusted accordingly: Yes Anticipated discharge: Home
[2018-07-16] MEDS ORDERED: (PENDING PHARMACY ID) (Tiotropium Br/Olodaterol Hcl [Stiolto Respimat Inhal Spray] 2 PUFF) IH SCH (10:00)
[2018-07-16] MEDS ORDERED: ACETYLCYSTEINE 600 MG PO SCH (10:00)
[2018-07-16] MEDS: ACETYLCYSTEINE 20% SOLN 800 MG/4 ML VIAL.NEB PO SCH (10:38)
[2018-07-16] MEDS: AZITHROMYCIN 500 MG in DEXTROSE 5%-WATER 250 ML IV SCH (10:39)
--- NOTE | 2018-07-16 11:42 | PDOC PROGRESS REPORT ---
Subjective Progress Note for:: 07/16/18 Reason For Visit: Doing well today. No complaints of any chest pains or shortness of breath. No complaints of any fever or chills. Still coughing but much improved. Labs and medications reviewed with her shows nicely resolving renal numbers. Physical Exam Vital Signs: Temp Pulse Resp BP Pulse Ox 97.3 F 104 H 14 104/61 93 07/16/18 07:26 07/16/18 08:47 07/16/18 08:47 07/16/18 07:26 07/16/18 08:47 Intake & Output 07/15/18 07/16/18 07/17/18 06:59 06:59 06:59 Intake Total 6450 3760 Output Total 1700 4200 Balance 4750 -440 Weight 75.6 kg 79.7 kg General appearance: PRESENT: no acute distress Respiratory exam: PRESENT: clear to auscultation melvina, crackles, decreased breath sounds Cardiovascular exam: PRESENT: +S1, +S2 GI/Abdominal exam: PRESENT: normal bowel sounds, soft. ABSENT: organomegaly, tenderness Extremities exam: ABSENT: pedal edema Neurological exam: PRESENT: alert, awake, oriented to person, oriented to place Results Laboratory Results: 07/16/18 04:58 07/16/18 04:58 07/16/18 07/16/18 04:58 04:58 WBC 8.6 RBC 4.00 Hgb 12.2 Hct 35.7 L MCV 89 MCH 30.5 MCHC 34.2 RDW 14.6 H Plt Count 176 Seg Neutrophils % 56.8 Lymphocytes % 27.3 Monocytes % 11.4 Eosinophils % 4.1 Basophils % 0.4 Absolute Neutrophils 4.9 Absolute Lymphocytes 2.4 Absolute Monocytes 1.0 Absolute Eosinophils 0.4 Absolute Basophils 0.0 Sodium 141.8 Potassium 3.6 Chloride 109 H Carbon Dioxide 21 L Anion Gap 12 BUN 32 H Creatinine 1.70 H Est GFR ( Amer) 37 L Est GFR (Non-Af Amer) 30 L Glucose 86 Calcium 10.3 H Magnesium 1.8 Total Bilirubin 0.5 AST 25 ALT 22 Alkaline Phosphatase 82 Total Protein 6.9 Albumin 3.5 07/14/18 07/15/18 20:00 03:57 Troponin I < 0.012 NT-Pro-B Natriuret Pep 161 Impressions: Chest X-Ray 07/14/18 18:31 IMPRESSION: Suggestion of retrocardiac consolidation which may represent an acute infectious process. Recommend upright PA and lateral chest radiographs if clinically feasible to evaluate the retrocardiac air spaces. Renal Ultrasound 07/14/18 21:20 IMPRESSION: Diffuse increased echogenicity of the kidneys suggestive of medical renal disease. No hydronephrosis. Chest CT 07/15/18 00:00 IMPRESSION: Limited airspace disease in the medial aspect of the left lower lo be. Pneumonia versus atelectasis. Mild mediastinal adenopathy. Assessment & Plan - Diagnosis (1) Acute renal failure Qualifiers: Acute renal failure type: unspecified Qualified Code(s): N17.9 - Acute kidney failure, unspecified Is this a current diagnosis for this admission?: Yes Plan: Nonoliguric. Resolving well in the face of prerenal/ATN insult to the kidneys. Would recommend cutting back on fluids today and stopping it by tomorrow morning. I am going to sign off this patient and would be glad to see her on a as needed basis. (2) HTN (hypertension) Qualifiers: Hypertension type: essential hypertension Qualified Code(s): I10 - Essential (primary) hypertension Is this a current diagnosis for this admission?: Yes Plan: Currently low normal blood pressures off all antihypertensives and will leave it the same. Reintroduce as needed. (3) Pneumonia Qualifiers: Pneumonia type: due to unspecified organism Laterality: unspecified laterality Lung location: unspecified part of lung Qualified Code(s): J18.9 - Pneumonia, unspecified organism Is this a current diagnosis for this admission?: Yes Plan: On appropriate antibiotics with clinical improvement.
[2018-07-16] MEDS: ATORVASTATIN CALCIUM 40 MG TABLET PO SCH (23:35)
[2018-07-17 05:25] LABS: ABSOLUTE EOSINOPHILS # (AUTO) 0.5 10^3/uL (0.0-0.6); ABSOLUTE LYMPHOCYTES (AUTO) 2.7 10^3/uL (0.5-4.7); ABSOLUTE NEUT (AUTO) 3.7 10^3/uL (1.7-8.2); BASOPHILS % (AUTO) 0.5 % (0-2); EOSINOPHILS % (AUTO) 6.7 % (0-6); HEMATOCRIT 32.9 % (36.0-47.0); HEMOGLOBIN 11.3 g/dL (12.0-15.5); LYMPHOCYTES % (AUTO) 34.3 % (13-45); MEAN CORPUSCULAR HEMOGLOBIN 30.4 pg (27.0-33.4); MEAN CORPUSCULAR HGB CONC 34.4 g/dL (32.0-36.0); MEAN CORPUSCULAR VOLUME 89 fl (80-97); MONOCYTES % (AUTO) 12.3 % (3-13); PLATELET COUNT 160 10^3/uL (150-450); RED BLOOD COUNT 3.71 10^6/uL (3.72-5.28); RED CELL DISTRIBUTION WIDTH 14.4 % (11.5-14.0); SEGMENTED NEUTROPHILS % (AUTO) 46.2 % (42-78); TOTAL CELLS COUNTED % (AUTO) 100 %; WHITE BLOOD COUNT 7.9 10^3/uL (4.0-10.5)
[2018-07-17] MEDS: HEPARIN SOD (PORCINE) 5,000 UNIT/ML 1 ML SYRINGE SUBCUT SCH ×3 (05:44→22:47)
[2018-07-17 05:50] LABS: ALANINE AMINOTRANSFERASE 22 U/L (9-52); ALKALINE PHOSPHATASE 75 U/L (38-126); ANION GAP 9 (5-19); ASPARTATE AMINO TRANSFERASE 23 U/L (14-36); BILIRUBIN,DIRECT 0.2 mg/dL (0.0-0.4); BILIRUBIN,TOTAL 0.5 mg/dL (0.2-1.3); BLOOD UREA NITROGEN 21 mg/dL (7-20); CALCIUM 10.1 mg/dL (8.4-10.2); CARBON DIOXIDE 19 mmol/L (22-30); CHLORIDE 112 mmol/L (98-107); GLUCOSE 94 mg/dL (75-110); POTASSIUM 3.8 mmol/L (3.6-5.0); SODIUM 140.4 mmol/L (137-145); TOTAL PROTEIN 6.2 g/dL (6.3-8.2)
[2018-07-17] MEDS: GEMFIBROZIL 600 MG TABLET PO SCH ×2 (08:02→17:25)
[2018-07-17] MEDS: NORMAL SALINE 1000 ML 1,000 ML IV PRN (08:06)
[2018-07-17] MEDS: LEVALBUTEROL HCL NEB 1.25 MG/3 ML AMPUL NEB SCH ×2 (08:09→15:50)
[2018-07-17] MEDS: PANTOPRAZOLE SODIUM 40 MG VIAL IV SCH (09:16)
[2018-07-17] MEDS: AZITHROMYCIN 250 MG TABLET PO SCH (09:16)
[2018-07-17] MEDS: DOCUSATE SODIUM 100 MG CAPSULE PO SCH ×2 (09:16→17:25)
[2018-07-17] MEDS: CEFTRIAXONE 1 GM/D5W RTU 1 GM/50 ML RTUPB IV SCH (09:17)
[2018-07-17] MEDS: FLUTICASONE NASAL SPRAY 50 MCG/SPRY 120 SPRAY/16 GM NAREB SCH (09:17)
[2018-07-17] MEDS: GABAPENTIN 300 MG CAPSULE PO SCH (09:17)
[2018-07-17] MEDS: CETIRIZINE 10 MG TABLET PO SCH (09:17)
[2018-07-17] MEDS: ACETYLCYSTEINE 20% SOLN 800 MG/4 ML VIAL.NEB PO SCH (09:18)
--- NOTE | 2018-07-17 10:55 | PDOC PROGRESS REPORT ---
Subjective Progress Note for:: 07/17/18 Subjective:: 62 year old female who presented to the emergency room with a 7-day history of cough. She admits that she began coughing approximately 7 days ago and her cough gradually worsened over the course of the week. She contacted her primary care provider who phoned in a prescription for Levaquin 500 mg daily for 7 days which she has been taking as directed culminating today. She describes her cough as paroxysmal productive of moderate amounts of very thick tenacious green sputum and accompanied by chills with no fever. She denies other associated symptoms but admits numerous prior similar episodes with 4 prior episodes of pneumonia and many episodes of bronchitis. She admits to a decreased appetite and oral intake in general over the last 7 days on further questioning. In the emergency room she was found to have a left lower lung infiltrate and was further noted to have a creatinine of 6.5 with a BUN of 72. With these findings she was admitted to the hospital for further evaluation and treatment. 07/15/[id number]-old female admitted for pneumonia the patient she was treated for times for the same problem and she is not getting better so decided to came to the emergency room for further evaluation in the ER found to have a left lung infiltrate and a creatinine of 6.5 with a BUN of 72 medical consult called for admission no acute events since the admission patient is afebrile. Blood pressures are improving. 07/16/2018-no acute events in the last 24 hrs.afebril.comfortably audibly in bed communicating very well. Denies any problems denies any concerns. 07/17/2018-no acute events in the last 24 hours. Patient is afebrile. T-max is 97.7. Kidney function came back to normal. Plan to discontinue IV fluids. Plan is to remove the Boyd's catheter. Sputum cultures came back positive for MRSA antibiotics were changed to p.o. clindamycin and IV vancomycin. Pharmacy is going to adjust the IV vancomycin dose as per trough levels. Patient is comfortably in the bed denies any problems. Reason For Visit: PNEUMONIA WITH ACUTE RENAL FAILURE Physical Exam Vital Signs: Temp Pulse Resp BP Pulse Ox 97.7 F 83 14 107/76 93 07/17/18 07:17 07/17/18 08:09 07/17/18 08:09 07/17/18 07:17 07/17/18 08:09 Intake & Output 07/16/18 07/17/18 07/18/18 06:59 06:59 06:59 Intake Total 3760 2131 898 Output Total 4200 1710 Balance -440 421 898 Weight 79.7 kg 80.1 kg General appearance: PRESENT: no acute distress Head exam: PRESENT: atraumatic Eye exam: PRESENT: PERRLA Mouth exam: PRESENT: dry mucosa Neck exam: ABSENT: carotid bruit, JVD, lymphadenopathy, thyromegaly Respiratory exam: PRESENT: clear to auscultation melvina. ABSENT: rales, rhonchi, wheezes Cardiovascular exam: PRESENT: RRR. ABSENT: diastolic murmur, rubs, systolic murmur GI/Abdominal exam: PRESENT: normal bowel sounds, soft. ABSENT: distended, guarding, mass, organolmegaly, rebound, tenderness Extremities exam: PRESENT: full ROM. ABSENT: calf tenderness, clubbing, pedal edema Neurological exam: PRESENT: alert, awake, oriented to person, oriented to place, oriented to time, oriented to situation, CN II-XII grossly intact. ABSENT: motor sensory deficit Psychiatric exam: PRESENT: appropriate affect, normal mood. ABSENT: homicidal ideation, suicidal ideation Results Laboratory Results: 07/17/18 05:00 07/17/18 05:00 07/17/18 07/17/18 05:00 05:00 WBC 7.9 RBC 3.71 L Hgb 11.3 L Hct 32.9 L MCV 89 MCH 30.4 MCHC 34.4 RDW 14.4 H Plt Count 160 Seg Neutrophils % 46.2 Lymphocytes % 34.3 Monocytes % 12.3 Eosinophils % 6.7 H Basophils % 0.5 Absolute Neutrophils 3.7 Absolute Lymphocytes 2.7 Absolute Monocytes 1.0 Absolute Eosinophils 0.5 Absolute Basophils 0.0 Sodium 140.4 Potassium 3.8 Chloride 112 H Carbon Dioxide 19 L Anion Gap 9 BUN 21 H Creatinine 0.94 Est GFR ( Amer) > 60 Est GFR (Non-Af Amer) > 60 Glucose 94 Calcium 10.1 Magnesium 1.7 Total Bilirubin 0.5 AST 23 ALT 22 Alkaline Phosphatase 75 Total Protein 6.2 L Albumin 3.0 L 07/14/18 23:07 Sputum Gram Stain - Final 07/14/18 23:07 Sputum Sputum Culture - Final Mrsa (Meth Resis Staph Aureus) C.albicans/C.dubliniensis Reduced Normal Katharine 07/14/18 07/15/18 20:00 03:57 Troponin I < 0.012 NT-Pro-B Natriuret Pep 161 Impressions: Chest X-Ray 07/14/18 18:31 IMPRESSION: Suggestion of retrocardiac consolidation which may represent an ac last infectious process. Recommend upright PA and lateral chest radiographs if clinically feasible to evaluate the retrocardiac air spaces. Renal Ultrasound 07/14/18 21:20 IMPRESSION: Diffuse increased echogenicity of the kidneys suggestive of medical renal disease. No hydronephrosis. Chest CT 07/15/18 00:00 IMPRESSION: Limited airspace disease in the medial aspect of the left lower lobe. Pneumonia versus atelectasis. Mild mediastinal adenopathy. Assessment and Plan - Diagnosis (1) Acute renal failure Qualifiers: Acute renal failure type: unspecified Qualified Code(s): N17.9 - Acute kidney failure, unspecified Is this a current diagnosis for this admission?: Yes Plan: Patient be admitted with IV fluid rehydration/resuscitation utilizing lactated Ringer's at 250 mL/h initially. Her metabolic status will be monitored closely with serial basic metabolic profiles. Her CBC will be monitored on a daily basis. Alternative causes of acute renal failure will be assessed as appropriate. Consultation with Dr. Keenan Vinson is obtained. 07/15/2018 patient was admitted with creatinine of 6.5 and she is on Ringer lactate to 50 cc/h creatinine is improved to 4.05. We do not have the baseline creatinine available. Most likely she has acute on chronic renal failure secondary to poor oral intake resolving. And is to recheck the labs tomorrow and plan is to change IV fluids to normal saline at 125 cc/h. Plan is to recheck the labs tomorrow. 07/16/2018-patient's admission creatinine is 6.1 improved to 1.7 today with IV fluids acute kidney injury most likely secondary to prerenal causes which is resolving. IV fluids are decreased from 125-75 cc/h from this morning. plan is to recheck the labs tomorrow. 07/17/2018-patient admitted with creatinine of 6.1 today it was 0.94 acute kidney injury due to prerenal causes/ATN resolved. (2) Hypotension Qualifiers: Hypotension type: unspecified hypotension type Qualified Code(s): I95.9 - Hypotension, unspecified Is this a current diagnosis for this admission?: Yes Plan: 07/15/18 11:00 Patient latest blood pressure is 107/66 on admission it was 94/73. Patient is on Ringer lactate to 50 cc/h I change the fluids to normal saline at 126 cc/h. Renal ultrasound was requested. Plan is to continue the present management antihypertensives are on hold. 07/16/2018-patient's blood pressure today is 104/61 presently on normal saline at 125 cc/h blood pressure medications she is taking at home are on hold plan is to continue the present management and recheck the labs tomorrow. 07/17/2018-patient's blood pressure today is 107/76. Antihypertensives are on hold. Be going to discontinue IV fluids today. Hypotension secondary to sepsis resolved. (3) Pneumonia Qualifiers: Pneumonia type: due to unspecified organism Laterality: unspecified laterality Lung location: unspecified part of lung Qualified Code(s): J18.9 - Pneumonia, unspecified organism Is this a current diagnosis for this admission?: Yes Plan: Patient has finished 7 days of Levaquin which may be adequate for treatment of her pneumonia, with the x-ray findings lagging the clinical resolution. As this cannot be accurately ascertained patient will be at least initially treated with Rocephin and Zithromax IV. Given the patient's normal white blood count with resolution of her sputum production antibiotics could probably be discontinued after 3-5 days. Patient be treated with a pulmonary toilet utilizing levalbute rol every 8 hours and Mucomyst twice daily. 07/15/2018-patient was treated with pneumonia 4 times as an outpatient without success chest x-ray findings in the ER shows left lower lobe infiltrate started on IV Rocephin and Zithromax. We are going to do the CT chest without contrast today for further information. Patient has most likely community-acquired pneumonia the sputum culture shows gram-positive cocci most likely gram-positive bacteria is responsible organism plan is to continue the present management follow her on regular basis 07/16/2018-admission chest x-ray suggestive of pneumonia sputum culture is positive for gram-positive cocci in pairs presently on azithromycin and ceftriaxone patient is afebrile T-max is 97.3 hypotension is resolving patient has community-acquired pneumonia most likely secondary to gram-positive bacteria. 07/17/2018 sputum cultures are positive for MRSA. Sepsis secondary to community- acquired pneumonia due to gram-positive organism is resolving. blood Cultures so far negative. (4) Sepsis Is this a current diagnosis for this admission?: Yes Plan: 07/16/2018 patient came in with hypotension, acute renal failure and the chest x- ray shows pneumonia all the symptoms suggestive of sepsis. Sepsis is resolving. Sputum culture is positive for gram-positive cocci in pairs. Cultures are negative. 07/17/2018-sepsis is resolving. Sputum cultures are positive for MRSA. - Time Time Spent with patient: 15-24 minutes Medications reviewed and adjusted accordingly: Yes Anticipated discharge: Home
[2018-07-17] MEDS: CLINDAMYCIN HCL 150 MG CAPSULE PO SCH ×2 (13:44→22:46)
[2018-07-17] MEDS: VANCOMYCIN HCL 1,250 MG in DEXTROSE 5%-WATER 250 ML IV SCH (13:45)
[2018-07-17] MEDS: ATORVASTATIN CALCIUM 40 MG TABLET PO SCH (22:46)
[2018-07-18] MEDS: LEVALBUTEROL HCL NEB 1.25 MG/3 ML AMPUL NEB SCH ×3 (00:02→16:51)
[2018-07-18 06:09] LABS: ABSOLUTE BASOPHILS # (AUTO) 0.1 10^3/uL (0.0-0.2); ABSOLUTE EOSINOPHILS # (AUTO) 0.7 10^3/uL (0.0-0.6); ABSOLUTE LYMPHOCYTES (AUTO) 2.9 10^3/uL (0.5-4.7); ABSOLUTE NEUT (AUTO) 2.5 10^3/uL (1.7-8.2); BASOPHILS % (AUTO) 0.8 % (0-2); EOSINOPHILS % (AUTO) 9.1 % (0-6); HEMATOCRIT 34.4 % (36.0-47.0); HEMOGLOBIN 11.8 g/dL (12.0-15.5); LYMPHOCYTES % (AUTO) 41.1 % (13-45); MEAN CORPUSCULAR HEMOGLOBIN 30.8 pg (27.0-33.4); MEAN CORPUSCULAR HGB CONC 34.3 g/dL (32.0-36.0); MEAN CORPUSCULAR VOLUME 90 fl (80-97); MONOCYTES % (AUTO) 13.8 % (3-13); PLATELET COUNT 164 10^3/uL (150-450); RED BLOOD COUNT 3.84 10^6/uL (3.72-5.28); RED CELL DISTRIBUTION WIDTH 14.6 % (11.5-14.0); SEGMENTED NEUTROPHILS % (AUTO) 35.2 % (42-78); TOTAL CELLS COUNTED % (AUTO) 100 %; WHITE BLOOD COUNT 7.1 10^3/uL (4.0-10.5)
[2018-07-18] MEDS: HEPARIN SOD (PORCINE) 5,000 UNIT/ML 1 ML SYRINGE SUBCUT SCH ×3 (06:22→21:30)
[2018-07-18] MEDS: CLINDAMYCIN HCL 150 MG CAPSULE PO SCH ×3 (06:22→21:32)
[2018-07-18 07:02] LABS: ALANINE AMINOTRANSFERASE 25 U/L (9-52); ALBUMIN 3.4 g/dL (3.5-5.0); ALKALINE PHOSPHATASE 86 U/L (38-126); ANION GAP 9 (5-19); ASPARTATE AMINO TRANSFERASE 26 U/L (14-36); BILIRUBIN,DIRECT 0.2 mg/dL (0.0-0.4); BILIRUBIN,TOTAL 0.5 mg/dL (0.2-1.3); BLOOD UREA NITROGEN 17 mg/dL (7-20); CALCIUM 10.3 mg/dL (8.4-10.2); CARBON DIOXIDE 21 mmol/L (22-30); CHLORIDE 111 mmol/L (98-107); GLUCOSE 98 mg/dL (75-110); POTASSIUM 4.1 mmol/L (3.6-5.0); TOTAL PROTEIN 6.9 g/dL (6.3-8.2)
[2018-07-18] MEDS: GEMFIBROZIL 600 MG TABLET PO SCH ×2 (08:52→17:11)
[2018-07-18] MEDS: DOCUSATE SODIUM 100 MG CAPSULE PO SCH ×2 (09:46→17:10)
[2018-07-18] MEDS: VANCOMYCIN HCL 1,250 MG in DEXTROSE 5%-WATER 250 ML IV SCH (09:50)
[2018-07-18] MEDS: FLUTICASONE NASAL SPRAY 50 MCG/SPRY 120 SPRAY/16 GM NAREB SCH (09:51)
[2018-07-18] MEDS: GABAPENTIN 300 MG CAPSULE PO SCH (09:51)
[2018-07-18] MEDS: AZITHROMYCIN 250 MG TABLET PO SCH (09:51)
[2018-07-18] MEDS: CETIRIZINE 10 MG TABLET PO SCH (09:51)
[2018-07-18] MEDS: ACETYLCYSTEINE 20% SOLN 800 MG/4 ML VIAL.NEB PO SCH (09:54)
[2018-07-18] MEDS ORDERED: VANCOMYCIN HCL INJ 1000 MG VIAL IV SCH (10:00)
--- NOTE | 2018-07-18 10:01 | PDOC PROGRESS REPORT ---
Subjective Progress Note for:: 07/18/18 Subjective:: 62 year old female who presented to the emergency room with a 7-day history of cough. She admits that she began coughing approximately 7 days ago and her cough gradually worsened over the course of the week. She contacted her primary care provider who phoned in a prescription for Levaquin 500 mg daily for 7 days which she has been taking as directed culminating today. She describes her cough as paroxysmal productive of moderate amounts of very thick tenacious green sputum and accompanied by chills with no fever. She denies other associated symptoms but admits numerous prior similar episodes with 4 prior episodes of pneumonia and many episodes of bronchitis. She admits to a decreased appetite and oral intake in general over the last 7 days on further questioning. In the emergency room she was found to have a left lower lung infiltrate and was further noted to have a creatinine of 6.5 with a BUN of 72. With these findings she was admitted to the hospital for further evaluation and treatment. 07/[id number]-jhec-old female admitted for pneumonia the patient she was treated for times for the same problem and she is not getting better so decided to came to the emergency room for further evaluation in the ER found to have a left lung infiltrate and a creatinine of 6.5 with a BUN of 72 medical consult called for admission no acute events since the admission patient is afebrile. Blood pressures are improving. 07/16/2018-no acute events in the last 24 hrs.afebril.comfortably audibly in bed communicating very well. Denies any problems denies any concerns. 07/17/2018-no acute events in the last 24 hours. Patient is afebrile. T-max is 97.7. Kidney function came back to normal. Plan to discontinue IV fluids. Plan is to remove the Boyd's catheter. Sputum cultures came back positive for MRSA antibiotics were changed to p.o. clindamycin and IV vancomycin. Pharmacy is going to adjust the IV vancomycin dose as per trough levels. Patient is comfortably in the bed denies any problems. 07/18/2018-no acute events in the last 24 hours. Patient is afebrile. Sputum culture came back MRSA. CT scan shows pneumonia. She is in isolation for MRSA. We are going to give 1 more day of IV antibiotic therapy if everything is okay probably she will go home with p.o. antibiotics. Patient is comfortable in the bed no concerns expressed by the patient. Reason For Visit: PNEUMONIA WITH ACUTE RENAL FAILURE Physical Exam Vital Signs: Temp Pulse Resp BP Pulse Ox 97.9 F 93 16 138/81 H 92 07/18/18 07:47 07/18/18 08:34 07/18/18 08:34 07/18/18 07:47 07/18/18 08:34 Intake & Output 07/17/18 07/18/18 07/19/18 06:59 06:59 06:59 Intake Total 2131 3769 Output Total 1710 955 Balance 421 2814 Weight 80.1 kg 79 kg General appearance: PRESENT: no acute distress Head exam: PRESENT: atraumatic Eye exam: PRESENT: PERRLA Mouth exam: PRESENT: moist, tongue midline Neck exam: ABSENT: carotid bruit, JVD, lymphadenopathy, thyromegaly Respiratory exam: PRESENT: clear to auscultation melvina. ABSENT: rales, rhonchi, wheezes Cardiovascular exam: PRESENT: RRR, tachycardia. ABSENT: diastolic murmur, rubs, systolic murmur GI/Abdominal exam: PRESENT: normal bowel sounds, soft. ABSENT: distended, guarding, mass, organolmegaly, rebound, tenderness Extremities exam: PRESENT: full ROM. ABSENT: calf tenderness, clubbing, pedal edema Neurological exam: PRESENT: alert, awake, oriented to person, oriented to place, oriented to time, oriented to situation, CN II-XII grossly intact. ABSENT: motor sensory deficit Psychiatric exam: PRESENT: appropriate affect, normal mood. ABSENT: homicidal ideation, suicidal ideation Results Laboratory Results: 07/18/18 05:32 07/18/18 05:32 07/18/18 07/18/18 05:32 05:32 WBC 7.1 RBC 3.84 Hgb 11.8 L Hct 34.4 L MCV 90 MCH 30.8 MCHC 34.3 RDW 14.6 H Plt Count 164 Seg Neutrophils % 35.2 L Lymphocytes % 41.1 Monocytes % 13.8 H Eosinophils % 9.1 H Basophils % 0.8 Absolute Neutrophils 2.5 Absolute Lymphocytes 2.9 Absolute Monocytes 1.0 Absolute Eosinophils 0.7 H Absolute Basophils 0.1 Sodium 141.0 Potassium 4.1 Chloride 111 H Carbon Dioxide 21 L Anion Gap 9 BUN 17 Creatinine 0.80 Est GFR ( Amer) > 60 Est GFR (Non-Af Amer) > 60 Glucose 98 Calcium 10.3 H Magnesium 1.7 Total Bilirubin 0.5 AST 26 ALT 25 Alkaline Phosphatase 86 Total Protein 6.9 Albumin 3.4 L 07/14/18 23:07 Sputum Gram Stain - Final 07/14/18 23:07 Sputum Sputum Culture - Final Mrsa (Meth Resis Staph Aureus) C.albicans/C.dubliniensis Reduced Normal Katharine 07/14/18 07/15/18 20:00 03:57 Troponin I < 0.012 NT-Pro-B Natriuret Pep 161 Impressions: Chest X-Ray 07/14/18 18:31 IMPRESSION: Suggestion of retrocardiac consolidation which may represent an acute infectious process. Recommend upright PA and lateral chest radiographs if clinically feasible to evaluate the retrocardiac air spaces. Renal Ultrasound 07/14/18 21:20 IMPRESSION: Diffuse increased echogenicity of the kidneys suggestive of medical renal disease. No hydronephrosis. Chest CT 07/15/18 00:00 IMPRESSION: Limited airspace disease in the medial aspect of the left lower lobe. Pneumonia versus atelectasis. Mild mediastinal adenopathy. Assessment and Plan - Diagnosis (1) Pneumonia Qualifiers: Pneumonia type: due to unspecified organism Laterality: unspecified laterality Lung location: unspecified part of lung Qualified Code(s): J18.9 - Pneumonia, unspecified organism Is this a current diagnosis for this admission?: Yes Plan: Patient has finished 7 days of Levaquin which may be adequate for treatment of her pneumonia, with the x-ray findings lagging the clinical resolution. As this cannot be accurately ascertained patient will be at least initially treated with Rocephin and Zithromax IV. Given the patient's normal white blood count with resolution of her sputum production antibiotics could probably be discontinued after 3-5 days. Patient be treated with a pulmonary toilet utilizing levalbuterol every 8 hours and Mucomyst twice daily. 07/15/2018-patient was treated with pneumonia 4 times as an outpatient without success chest x-ray findings in the ER shows left lower lobe infiltrate started on IV Rocephin and Zithromax. We are going to do the CT chest without contrast today for further information. Patient has most likely community-acquired pneumonia the sputum culture shows gram-positive cocci most likely gram-positive bacteria is responsible organism plan is to continue the present management follow her on regular basis 07/16/2018-admission chest x-ray suggestive of pneumonia sputum culture is positive for gram-positive cocci in pairs presently on azithromycin and ceftriaxone patient is afebrile T-max is 97.3 hypotension is resolving patient has community-acquired pneumonia most likely secondary to gram-positive bacteria. 07/17/2018 sputum cultures are positive for MRSA. Sepsis secondary to community- acquired pneumonia due to gram-positive organism is resolving. blood Cultures so far negative. 07/18/2018-patient is admitted with pneumonia most likely community-acquired pn eumonia secondary to gram-positive organisms. Blood cultures are negative. Sputum culture came back positive for MRSA patient is presently on IV vancomycin and p.o. clindamycin. Afebrile. Plan is to give 1 more day of IV antibiotic therapy probably plan to discharge her home tomorrow. (2) Acute renal failure Qualifiers: Acute renal failure type: unspecified Qualified Code(s): N17.9 - Acute kidney failure, unspecified Is this a current diagnosis for this admission?: Yes Plan: Patient be admitted with IV fluid rehydration/resuscitation utilizing lactated Ringer's at 250 mL/h initially. Her metabolic status will be monitored closely with serial basic metabolic profiles. Her CBC will be monitored on a daily basis. Alternative causes of acute renal failure will be assessed as appropriate. Consultation with Dr. Keenan Vinson is obtained. 07/15/2018 patient was admitted with creatinine of 6.5 and she is on Ringer lactate to 50 cc/h creatinine is improved to 4.05. We do not have the baseline creatinine available. Most likely she has acute on chronic renal failure secondary to poor oral intake resolving. And is to recheck the labs tomorrow and plan is to change IV fluids to normal saline at 125 cc/h. Plan is to recheck the labs tomorrow. 07/16/2018-patient's admission creatinine is 6.1 improved to 1.7 today with IV fluids acute kidney injury most likely secondary to prerenal causes which is resolving. IV fluids are decreased from 125-75 cc/h from this morning. plan is to recheck the labs tomorrow. 07/17/2018-patient admitted with creatinine of 6.1 today it was 0.94 acute kidney injury due to prerenal causes/ATN resolved. 07/18/2018-patient is admitted with acute renal failure creatinine was 6.1 it was improved to 0.8 acute kidney injury most likely secondary to ATN caused by prerenal causes. Which was resolved. (3) Hypotension Qualifiers: Hypotension type: unspecified hypotension type Qualified Code(s): I95.9 - Hypotension, unspecified Is this a current diagnosis for this admission?: Yes Plan: 07/15/18 11:00 Patient latest blood pressure is 107/66 on admission it was 94/73. Patient is on Ringer lactate to 50 cc/h I change the fluids to normal saline at 126 cc/h. Renal ultrasound was requested. Plan is to continue the present management antihypertensives are on hold. 07/16/2018-patient's blood pressure today is 104/61 presently on normal saline at 125 cc/h blood pressure medications she is taking at home are on hold plan is to continue the present management and recheck the labs tomorrow. 07/17/2018-patient's blood pressure today is 107/76. Antihypertensives are on hold. Be going to discontinue IV fluids today. Hypotension secondary to sepsis resolved. 07/18/2018-patient's blood pressure today is 138/81. Patient came in with hypotension secondary to sepsis. sepsis Which was resolved. (4) Sepsis Is this a current diagnosis for this admission?: Yes Plan: 07/16/2018 patient came in with hypotension, acute renal failure and the chest x- ray shows pneumonia all the symptoms suggestive of sepsis. Sepsis is resolving. Sputum culture is positive for gram-positive cocci in pairs. Cultures are negative. 07/17/2018-sepsis is resolving. Sputum cultures are positive for MRSA. 07/18/2018-patient is admitted with sepsis at the time of admission she was hypotensive with endorgan injury involving the kidney, chest x-ray showed pneumonia and she has high WBC count sputum culture was positive for MRSA sepsis is resolving. Patient is presently on p.o. clindamycin and IV vancomycin. - Time Time Spent with patient: 15-24 minutes Medications reviewed and adjusted accordingly: Yes Anticipated discharge: Home
[2018-07-18] MEDS: ATORVASTATIN CALCIUM 40 MG TABLET PO SCH (21:30)
[2018-07-19] MEDS: LEVALBUTEROL HCL NEB 1.25 MG/3 ML AMPUL NEB SCH ×2 (00:19→08:07)
[2018-07-19 04:21] LABS: ABSOLUTE BASOPHILS # (AUTO) 0.1 10^3/uL (0.0-0.2); ABSOLUTE EOSINOPHILS # (AUTO) 0.6 10^3/uL (0.0-0.6); ABSOLUTE LYMPHOCYTES (AUTO) 2.3 10^3/uL (0.5-4.7); ABSOLUTE MONOCYTES (AUTO) 0.9 10^3/uL (0.1-1.4); ABSOLUTE NEUT (AUTO) 3.2 10^3/uL (1.7-8.2); BASOPHILS % (AUTO) 0.9 % (0-2); EOSINOPHILS % (AUTO) 9.1 % (0-6); HEMATOCRIT 33.9 % (36.0-47.0); HEMOGLOBIN 11.5 g/dL (12.0-15.5); LYMPHOCYTES % (AUTO) 32.6 % (13-45); MEAN CORPUSCULAR HEMOGLOBIN 30.4 pg (27.0-33.4); MEAN CORPUSCULAR HGB CONC 33.8 g/dL (32.0-36.0); MEAN CORPUSCULAR VOLUME 90 fl (80-97); MONOCYTES % (AUTO) 12.6 % (3-13); PLATELET COUNT 146 10^3/uL (150-450); RED BLOOD COUNT 3.78 10^6/uL (3.72-5.28); RED CELL DISTRIBUTION WIDTH 14.4 % (11.5-14.0); SEGMENTED NEUTROPHILS % (AUTO) 44.8 % (42-78); TOTAL CELLS COUNTED % (AUTO) 100 %; WHITE BLOOD COUNT 7.1 10^3/uL (4.0-10.5)
[2018-07-19 04:54] LABS: ALANINE AMINOTRANSFERASE 28 U/L (9-52); ALBUMIN 3.3 g/dL (3.5-5.0); ALKALINE PHOSPHATASE 83 U/L (38-126); ANION GAP 9 (5-19); ASPARTATE AMINO TRANSFERASE 36 U/L (14-36); BILIRUBIN,DIRECT 0.2 mg/dL (0.0-0.4); BILIRUBIN,TOTAL 0.4 mg/dL (0.2-1.3); BLOOD UREA NITROGEN 16 mg/dL (7-20); CALCIUM 10.4 mg/dL (8.4-10.2); CARBON DIOXIDE 22 mmol/L (22-30); CHLORIDE 110 mmol/L (98-107); GLUCOSE 115 mg/dL (75-110); POTASSIUM 4.1 mmol/L (3.6-5.0); SODIUM 140.6 mmol/L (137-145); TOTAL PROTEIN 6.7 g/dL (6.3-8.2)
[2018-07-19] MEDS: CLINDAMYCIN HCL 150 MG CAPSULE PO SCH (05:18)
[2018-07-19] MEDS: HEPARIN SOD (PORCINE) 5,000 UNIT/ML 1 ML SYRINGE SUBCUT SCH (05:18)
[2018-07-19] MEDS: GEMFIBROZIL 600 MG TABLET PO SCH (08:13)
[2018-07-19 09:09] VITALS: BP 128/85
[2018-07-19] MEDS: CETIRIZINE 10 MG TABLET PO SCH (09:48)
[2018-07-19] MEDS: FLUTICASONE NASAL SPRAY 50 MCG/SPRY 120 SPRAY/16 GM NAREB SCH (09:48)
[2018-07-19] MEDS: AZITHROMYCIN 250 MG TABLET PO SCH (09:48)
[2018-07-19] MEDS: DOCUSATE SODIUM 100 MG CAPSULE PO SCH (09:48)
[2018-07-19] MEDS: GABAPENTIN 300 MG CAPSULE PO SCH (09:48)
[2018-07-19] MEDS: ACETYLCYSTEINE 20% SOLN 800 MG/4 ML VIAL.NEB PO SCH (09:48)
[2018-07-19] MEDS: VANCOMYCIN HCL 1,250 MG in DEXTROSE 5%-WATER 250 ML IV SCH (09:48)
--- NOTE | 2018-07-19 12:49 | PDOC DISCHARGE SUMMARY ---
General - Admit/Disc Date/PCP Admission Date/Primary Care Provider: 07/14/18 21:35 CATHY WELDON, Discharge Date: 07/19/18 - Discharge Diagnosis (1) Pneumonia Is this a current diagnosis for this admission?: Yes Summary: Patient has finished 7 days of Levaquin which may be adequate for treatment of her pneumonia, with the x-ray findings lagging the clinical resolution. As this cannot be accurately ascertained patient will be at least initially treated with Rocephin and Zithromax IV. Given the patient's normal white blood count with resolution of her sputum production antibiotics could probably be discontinued after 3-5 days. Patient be treated with a pulmonary toilet utilizing levalbuterol every 8 hours and Mucomyst twice daily. 07/15/2018-patient was treated with pneumonia 4 times as an outpatient without success chest x-ray findings in the ER shows left lower lobe infiltrate started on IV Rocephin and Zithromax. We are going to do the CT chest without contrast today for further information. Patient has most likely community-acquired pneumonia the sputum culture shows gram-positive cocci most likely gram-positive bacteria is responsible organism plan is to continue the present management follow her on regular basis 07/16/2018-admission chest x-ray suggestive of pneumonia sputum culture is positive for gram-positive cocci in pairs presently on azithromycin and ceftriaxone patient is afebrile T-max is 97.3 hypotension is resolving patient has community-acquired pneumonia most likely secondary to gram-positive bacteria. 07/17/2018 sputum cultures are positive for MRSA. Sepsis secondary to community- acquired pneumonia due to gram-positive organism is resolving. blood Cultures so far negative. 07/18/2018-patient is admitted with pneumonia most likely community-acquired pneumonia secondary to gram-positive organisms. Blood cultures are negative. Sputum culture came back positive for MRSA patient is presently on IV vancomycin and p.o. clindamycin. Afebrile. Plan is to give 1 more day of IV antibiotic therapy probably plan to discharge her home tomorrow. 07/19/2018 patient was admitted with community-acquired pneumonia caused by MRSA treated with IV vancomycin and clindamycin afebrile she is going home on Bactrim DS 1 tablet p.o. twice daily for 5 days. Patient was advised to follow-up with primary care physician in 1 week time. (2) Acute renal failure Is this a current diagnosis for this admission?: Yes Summary: Patient be admitted with IV fluid rehydration/resuscitation utilizing lactated Ringer's at 250 mL/h initially. Her metabolic status will be monitored closely with serial basic metabolic profiles. Her CBC will be monitored on a daily basis. Alternative causes of acute renal failure will be assessed as appropriate. Consultation with Dr. Keenan Vinson is obtained. 07/15/2018 patient was admitted with creatinine of 6.5 and she is on Ringer lact ate to 50 cc/h creatinine is improved to 4.05. We do not have the baseline creatinine available. Most likely she has acute on chronic renal failure secondary to poor oral intake resolving. And is to recheck the labs tomorrow and plan is to change IV fluids to normal saline at 125 cc/h. Plan is to recheck the labs tomorrow. 07/16/2018-patient's admission creatinine is 6.1 improved to 1.7 today with IV fluids acute kidney injury most likely secondary to prerenal causes which is resolving. IV fluids are decreased from 125-75 cc/h from this morning. plan is to recheck the labs tomorrow. 07/17/2018-patient admitted with creatinine of 6.1 today it was 0.94 acute kidney injury due to prerenal causes/ATN resolved. 07/18/2018-patient is admitted with acute renal failure creatinine was 6.1 it was improved to 0.8 acute kidney injury most likely secondary to ATN caused by prerenal causes. Which was resolved. 07/19/2018-patient was admitted with acute renal failure with creatinine of 6.1 improved to 0.5. Acute kidney injury most likely secondary to ATN caused by prerenal causes. (3) Hypotension Is this a current diagnosis for this admission?: Yes Summary: 07/15/18 11:00 Patient latest blood pressure is 107/66 on admission it was 94/73. Patient is on Ringer lactate to 50 cc/h I change the fluids to normal saline at 126 cc/h. Renal ultrasound was requested. Plan is to continue the present management antihypertensives are on hold. 07/16/2018-patient's blood pressure today is 104/61 presently on normal saline at 125 cc/h blood pressure medications she is taking at home are on hold plan is to continue the present management and recheck the labs tomorrow. 07/17/2018-patient's blood pressure today is 107/76. Antihypertensives are on hold. Be going to discontinue IV fluids today. Hypotension secondary to sepsis resolved. 07/18/2018-patient's blood pressure today is 138/81. Patient came in with hypotension secondary to sepsis. sepsis Which was resolved. 07/19/2018-patient's blood pressure today is 144/47 and hypotension due to sepsis is resolved. (4) Sepsis Is this a current diagnosis for this admission?: Yes Summary: 07/16/2018 patient came in with hypotension, acute renal failure and the chest x- ray shows pneumonia all the symptoms suggestive of sepsis. Sepsis is resolving. Sputum culture is positive for gram-positive cocci in pairs. Cultures are negative. 07/17/2018-sepsis is resolving. Sputum cultures are positive for MRSA. 07/18/2018-patient is admitted with sepsis at the time of admission she was hypotensive with endorgan injury involving the kidney, chest x-ray showed pneumonia and she has high WBC count sputum culture was positive for MRSA sepsis is resolving. Patient is presently on p.o. clindamycin and IV vancomycin. 2018-patient was admitted with sepsis with acute kidney injury hypotension tachycardia chest x-ray shows pneumonia sputum culture positive for MRSA sepsis is resolved. Patient is going home on Bactrim DS 1 tablet p.o. twice daily for 5 days. - Additional Information Resuscitation Status: Full Code Discharge Diet: Cardiac Discharge Activity: Activity As Tolerated Prescriptions: Sulfamethoxazole/Trimethoprim [Septra-Ds 800-160 mg Tablet] 1 tab PO .Q12 STOPPED #10 tablet MDD filled 07/08/18 for 10daysupply Home Medications: Acetylcysteine [R-Iywlri-v-Cysteine] 600 mg PO DAILY 07/15/18 Albuterol Sulfate [Proair HFA Inhalation Aerosol 8.5 gm MDI] 2 puff IH Q6HP PRN 07/15/18 Amlodipine Besylate [Norvasc 5 mg Tablet] 5 mg PO DAILY 07/15/18 Atorvastatin Calcium [Lipitor 40 mg Tablet] 40 mg PO QHS 07/15/18 Cetirizine HCl [Zyrtec 10 mg Tablet] 10 mg PO DAILY 07/15/18 Ergocalciferol (Vitamin D2) [Drisdol 50,000 unit (1.25MG) Capsule] 50,000 unit PO MO@1000 07/15/18 Fluticasone Propionate [Flonase Nasal Dexter 50 Mcg/Dexter 16 gm] 1 spray NAREB DAILY 07/15/18 Gabapentin [Neurontin 300 mg Capsule] 300 mg PO DAILY 07/15/18 Gemfibrozil [Lopid 600 mg Tablet] 600 mg PO BIDACBS 07/15/18 Ipratropium/Albuterol Sulfate [Duoneb 3 ml Ampul] 3 ml NEB [id number] PRN 07/15/18 Losartan/Hydrochlorothiazide [Losartan-Hctz 50-12.5 mg Tab] 1 each PO DAILY 07/15/18 Tiotropium Br/Olodaterol HCl [Stiolto Respimat Inhal Dexter] 2 puff IH DAILY 07/15/18 Levalbuterol HCl [Xopenex Neb 1.25 mg/3 ml Ampul] 1.25 mg NEB RTQ8 vial.neb 07/19/18 Sulfamethoxazole/Trimethoprim [Septra-Ds 800-160 mg Tablet] 1 tab PO .Q12 STOPPED #10 tablet MDD filled 07/08/18 for 10daysupply 07/19/18 History of Present Illness History of Present Illness: FARIDA ENCARNACION is a 62 year old female 62 year old female who presented to the emergency room with a 7-day history of cough. She admits that she began coughing approximately 7 days ago and her cough gradually worsened over the course of the week. She contacted her primary care provider who phoned in a prescription for Levaquin 500 mg daily for 7 days which she has been taking as directed culminating today. She describes her cough as paroxysmal productive of moderate amounts of very thick tenacious green sputum and accompanied by chills with no fever. She denies other associated symptoms but admits numerous prior similar episodes with 4 prior episodes of pneumonia and many episodes of bronchitis. She admits to a decreased appetite and oral intake in general over the last 7 days on further questioning. In the emergency room she was found to have a left lower lung infiltrate and was further noted to have a creatinine of 6.5 with a BUN of 72. With these findings she was admitted to the hospital for further evaluation and treatment. Physical Exam Vital Signs: Temp Pulse Resp BP Pulse Ox 97.6 F 86 22 H 128/85 H 98 07/19/18 11:39 07/19/18 11:39 07/19/18 11:39 07/19/18 11:39 07/19/18 11:39 Intake & Output 07/18/18 07/19/18 07/20/18 06:59 06:59 06:59 Intake Total 3769 1447 250 Output Total 955 600 Balance 2814 847 250 Weight 79 kg 78.6 kg General appearance: PRESENT: no acute distress Head exam: PRESENT: atraumatic Eye exam: PRESENT: PERRLA Neck exam: ABSENT: carotid bruit, JVD, lymphadenopathy, thyromegaly Respiratory exam: PRESENT: clear to auscultation melvina. ABSENT: rales, rhonchi, wheezes Cardiovascular exam: PRESENT: RRR. ABSENT: diastolic murmur, rubs, systolic murmur GI/Abdominal exam: PRESENT: normal bowel sounds, soft. ABSENT: distended, gu arding, mass, organolmegaly, rebound, tenderness Extremities exam: PRESENT: full ROM. ABSENT: calf tenderness, clubbing, pedal edema Neurological exam: PRESENT: alert, awake, oriented to person, oriented to place, oriented to time, oriented to situation, CN II-XII grossly intact. ABSENT: motor sensory deficit Psychiatric exam: PRESENT: appropriate affect, normal mood. ABSENT: homicidal ideation, suicidal ideation Results Laboratory Results: 07/19/18 03:56 07/19/18 03:56 07/19/18 07/19/18 03:56 03:56 WBC 7.1 RBC 3.78 Hgb 11.5 L Hct 33.9 L MCV 90 MCH 30.4 MCHC 33.8 RDW 14.4 H Plt Count 146 L Seg Neutrophils % 44.8 Lymphocytes % 32.6 Monocytes % 12.6 Eosinophils % 9.1 H Basophils % 0.9 Absolute Neutrophils 3.2 Absolute Lymphocytes 2.3 Absolute Monocytes 0.9 Absolute Eosinophils 0.6 Absolute Basophils 0.1 Sodium 140.6 Potassium 4.1 Chloride 110 H Carbon Dioxide 22 Anion Gap 9 BUN 16 Creatinine 0.69 Est GFR ( Amer) > 60 Est GFR (Non-Af Amer) > 60 Glucose 115 H Calcium 10.4 H Magnesium 1.6 Total Bilirubin 0.4 AST 36 ALT 28 Alkaline Phosphatase 83 Total Protein 6.7 Albumin 3.3 L 07/14/18 07/15/18 20:00 03:57 Troponin I < 0.012 NT-Pro-B Natriuret Pep 161 Impressions: Chest X-Ray 07/14/18 18:31 IMPRESSION: Suggestion of retrocardiac consolidation which may represent an acute infectious process. Recommend upright PA and lateral chest radiographs if clinically feasible to evaluate the retrocardiac air spaces. Renal Ultrasound 07/14/18 21:20 IMPRESSION: Diffuse increased echogenicity of the kidneys suggestive of medical renal disease. No hydronephrosis. Chest CT 07/15/18 00:00 IMPRESSION: Limited airspace disease in the medial aspect of the left lower lobe. Pneumonia versus atelectasis. Mild mediastinal adenopathy. Qualifiers - * PATIENT BEING DISCHARGED WITH ANY OF THE FOLLOWING DIAGNOSIS: No VTE patient discharged on overlapping Therapy?: No
[2018-07-21] MEDS ORDERED: ERGOCALCIFEROL (VITAMIN D2) 50000 UNIT (1.25 MG) CAPSULE PO SCH (10:00)
== END 2018-07-19 12:30 | disposition home or self-care (01) | DRG 871 ==
LOC: ER 17:41 → EH 21:35 → 3W 07-15 07:52
PROVIDERS: ADMIT Emergency Medicine; ATTEND Emergency Medicine
PROC: 3E0234Z Introduction of Serum, Toxoid and Vaccine into Muscle, Percutaneous Approach (ICD-10-PCS; principal; 2018-07-19)
DX: A41.02 Sepsis due to Methicillin resistant Staphylococcus aureus (principal); J18.9 Pneumonia, unspecified organism; N17.9 Acute kidney failure, unspecified; I10 Essential (primary) hypertension; E78.00 Pure hypercholesterolemia, unspecified; Z23 Encounter for immunization; Z87.891 Personal history of nicotine dependence; Z79.2 Long term (current) use of antibiotics; Z79.1 Long term (current) use of non-steroidal anti-inflammatories (NSAID); Z79.51 Long term (current) use of inhaled steroids; Z79.899 Other long term (current) drug therapy
CPT/HCPCS: 36415; 71045; 71250; 76775; 80048; 80053; 80061; 81001; 82803; 83036; 83605; 83735; 83880; 84439; 84443; 84481; 84484; 85025; 87040; 87070; 87077; 87186; 87205; 87804; 90686; 96361; 96365; 99291; J0456; J0696; J1644; J1956; J3370; J3490; J7030; J7060; J7120; S0164

== ENCOUNTER → 2019-04-24 | Outpatient (CLI) | payer MEDICARE, MEDICAID ==
--- NOTE | 2019-04-27 12:35 | WOMENS IMAGING REPORT ---
EXAM DESCRIPTION: BILAT SCREENING MAMMO W/CAD COMPLETED DATE/TIME: 04/24/2019 11:53 am REASON FOR STUDY: Z12.31 SCREENING MAMMO Z12.31 ENCNTR SCREEN MAMMOGRAM FOR MALIGNANT NEOPLASM OF B RE COMPARISON: 02/25/2018 and 02/18/2017. EXAM PARAMETERS: Standard craniocaudal and mediolateral oblique views of each breast recorded using digital acquisition. Read with the assistance of CAD. .[facility] - [employer] Entry Level Administrative Assistant Version 9.2 LIMITATIONS: None. FINDINGS: No suspicious masses, suspicious calcifications or architectural distortion. No areas of c oncern. IMPRESSION: Negative MAMMOGRAM. BIRADS 1 BREAST DENSITY: b. There are scattered areas of fibroglandular density. BIRAD: ASSESSMENT: 1 NEGATIVE RECOMMENDATION: ROUTINE SCREENING COMMENT: The patient has been notified of the results by letter per MQSA requirements. Additional no tification policies are in place for contacting patient with suspicious or incomplete findings. Quality ID #[id number]: The [employer] recommends an annual screening mammogram for women aged 40 years or over. This facility utilizes a reminder system to ensure that all patients receive reminder letters, and/or direct phone calls for appointments. This includes reminders for routine scr eening mammograms, diagnostic mammograms, or other Breast Imaging Interventions when appropriate. Th is patient will be placed in the appropriate reminder system. TECHNICAL DOCUMENTATION: FINDING NUMBER: (1) ASSESSMENT: (1) JOB ID: [id number] [employer]- All Rights Reserved Reading location - IP/workstation name: [email or web address]
== END ==
LOC: WI 11:10
PROVIDERS: ATTEND Family Medicine
DX: Z12.31 Encounter for screening mammogram for malignant neoplasm of breast (principal)
CPT/HCPCS: 77067